=== PATIENT | male | born 1935 | race Caucasian/White ===

== ENCOUNTER 2018-07-15 13:50 | Emergency (ER) | payer MEDICARE, BC ==
--- NOTE | 2018-07-15 15:20 | EDM.PDOC ---
ED HPI GENERAL MEDICAL PROBLEM - General Chief Complaint: Respiratory Problem Stated Complaint: BREATHING ISSUES Time Seen by Provider: 07/15/18 14:42 Source of Information: Reports: Patient, Old Records, RN Notes Reviewed History Limitations: Reports: No Limitations - History of Present Illness INITIAL COMMENTS - FREE TEXT/NARRATIVE: 82-year-old gentleman presents emergency department today sent over from clinic for being hypoxic, he has a known history of COPD he has been dealing with a pneumonia for the last 6 weeks, he has had antibiotics of amoxicillin, Ceftin and levofloxacin. Recently underwent CT scan 2 days prior which demonstrates infectious change right upper lobe associated with peribronchial thickening and volume loss likely represents an indolent infectious process such as MAC. At this time he still feels short of breath worse with exertion no chest pain no nausea vomiting no sputum production Denies Pain Score (Numeric/FACES): 0 - Related Data Allergies Allergy/AdvReac Type Severity Reaction Status Date / Time codeine Allergy Hives Verified 07/15/18 14:09 erythromycin base Allergy Pain Verified 07/15/18 14:09 [Erythromycin Base] Home Meds: Home Meds Aspirin 325 mg PO DAILY 08/10/13 [History] Simvastatin [Zocor] 40 mg PO BEDTIME 08/10/13 [History] Albuterol [Proventil HFA] 2 puff INH Q4H PRN 10/07/13 [History] Cholecalciferol (Vitamin D3) [Vitamin D3] 5,000 unit PO DAILY 10/07/13 [History] Fluticasone/Salmeterol [Advair 250-50] 1 puff INH BID 10/07/13 [History] Glucosam/MSM/Chondroit/Vit D3 [Sv Glucosamine Chondroitin Tab] 1 each PO DAILY 10/07/13 [History] Ipratropium [Atrovent 0.06% Nasal [place]] 2 sprays MIRTA QID 10/07/13 [History] Ipratropium/Albuterol Sulfate [Duoneb 0.5 mg-3 mg/3 ml Soln] 3 ml IH Q4HR PRN [History] Mometasone Furoate [Nasonex] 2 sprays MIRTA DAILY 10/07/13 [History] Niacin [Niaspan] 1,000 mg PO BEDTIME 10/07/13 [History] [place] 3/DHA/Epa/Vitamin D3 [[place]-3 + Vitamin D3 Softgel] 2 cap PO DAILY [History] Vitamin B Complex [B Complex] 1 tab PO DAILY 10/07/13 [History] Levofloxacin 1 tab PO DAILY 07/15/18 [History] predniSONE 2 tab PO DAILY 07/15/18 [History] Past Medical History HEENT History: Reports: Impaired Vision Cardiovascular History: Reports: CAD, High Cholesterol, [place] Respiratory History: Reports: Asthma, COPD Musculoskeletal History: Reports: Fracture Other Musculoskeletal History: heels Hematologic History: Reports: Blood Transfusion(s) - Infectious Disease History Infectious Disease History: Reports: Chicken Pox, Measles - Past Surgical History Cardiovascular Surgical History: Reports: Coronary Artery Bypass GI Surgical History: Reports: Appendectomy, Colonoscopy, Hernia, Inguinal Social & Family History - Tobacco Use Smoking Status *Q: Former Smoker Years of Tobacco use: 40 Packs/Tins Daily: 1 Used Tobacco, but Quit: No Month/Year Tobacco Last Used: September 1989 Second Hand Smoke Exposure: No - Caffeine Use Caffeine Use: Reports: Soda, Tea - Recreational Drug Use Recreational Drug Use: No ED ROS GENERAL - Review of Systems Review Of Systems: See Below Constitutional: Denies: Fever, Chills HEENT: Reports: No Symptoms Respiratory: Reports: Shortness of Breath, Wheezing. Denies: Cough, Sputum Cardiovascular: Reports: Dyspnea on Exertion GI/Abdominal: Reports: No Symptoms : Reports: No Symptoms ED EXAM, GENERAL - Physical Exam Exam: See Below Exam Limited By: No Limitations General Appearance: Alert, WD/WN, No Apparent Distress Neck: Normal Inspection, Supple, Non-Tender, Full Range of Motion Respiratory/Chest: No Respiratory Distress, Decreased Breath Sounds, Rhonchi, Wheezing Cardiovascular: Regular Rate, Rhythm, No Murmur Course - Vital Signs Last Recorded V/S: Last Vital Signs Temp 99.0 F 07/15/18 17:22 Pulse 88 07/15/18 17:22 Resp 16 07/15/18 17:22 BP 129/72 07/15/18 17:22 Pulse Ox 89 L 07/15/18 17:22 - Orders/Labs/Meds Orders: Active Orders 24 hr Category Date Time Status RT Sputum Induction [RC] Click to Edit Care 07/15/18 16:19 Active ACID FAST SMEAR+CULTURE W/RFLX Routine Lab 07/15/18 17:11 Received CULTURE FUNGAL [MYC] Routine Lab 07/15/18 17:11 Received CULTURE RESPIRATORY + SMEAR [RM] Routine Lab 07/15/18 17:11 Received Departure - Departure Time of Disposition: 17:31 Disposition: Home, Self-Care 01 Condition: Fair 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 Chad appointment with pulmonary medicine at [facility] August 11 at 1 PM he will have pulmonary function test done at 2 PM you have an appointment with the die cutter [facility] Dr. Jackson - My Orders Last 24 Hours: My Active Orders 07/15/18 16:19 RT Sputum Induction [RC] Click to Edit 07/15/18 17:11 ACID FAST SMEAR+CULTURE W/RFLX Routine CULTURE FUNGAL [MYC] Routine CULTURE RESPIRATORY + SMEAR [RM] Routine - Assessment/Plan Last 24 Hours: My Active Orders 07/15/18 16:19 RT Sputum Induction [RC] Click to Edit 07/15/18 17:11 ACID FAST SMEAR+CULTURE W/RFLX Routine CULTURE FUNGAL [MYC] Routine CULTURE RESPIRATORY + SMEAR [RM] Routine Plan: Assessment Acuity = acute Site and laterality = right lower lobe infectious/inflammatory change concern for microbacterium avium complex Etiology = unknown etiology Manifestations = shortness of breath with hypoxia upon exertion Location of injury = Home Lab values = none Plan He remained asymptomatic with O2 saturation around 90% however he did become hypoxic with any exertion, recommend follow-up in clinic for qualification of oxygen with exertion. I called and discussed the case with pulmonary medicine Dr. Farley at 1600 recommend induced sputum for Gram stain and culture, fungus as well as AFB this was collected and sent to lab. If this is microbacterium avium complex the treatment would be 3 course antibiotic for approximately one year. I have set this gentleman up for consultation with pulmonary medicine August 11 at 1 PM in [facility] he will have PFTs done at 2: 00 he has an appointment with Dr. Jackson. I talked with him about hospital admission he declined at this time would prefer to do this as an outpatient This note was dictated using [employer] voice recognition software please call with any questions on syntax or grammar.
== END 2018-07-15 17:59 | disposition home or self-care (01) ==
LOC: JP.ED 13:50
DX: A31.0 Pulmonary mycobacterial infection (principal); J44.9 Chronic obstructive pulmonary disease, unspecified; Z88.5 Allergy status to narcotic agent; Z88.1 Allergy status to other antibiotic agents; Z79.82 Long term (current) use of aspirin; Z87.891 Personal history of nicotine dependence
CPT/HCPCS: 87015; 87070; 87102; 87116; 87205; 87206; 99284-25

== ENCOUNTER 2020-01-01 08:56 | Inpatient (IN) | payer MEDICARE, BC, OTHER ==
[2020-01-01] MEDS ORDERED: Albuterol/Ipratropium 3.0-0.5 MG/3 ML Neb Soln ONE (09:12)
[2020-01-01] MEDS ORDERED: methylPREDNISolone Sodium Succinate 125 MG/2 ML SDV IVPUSH ONE (09:14)
[2020-01-01] MEDS ORDERED: Albuterol/Ipratropium 3.0-0.5 MG/3 ML Neb Soln NEB ONE (09:14)
--- NOTE | 2020-01-01 09:38 | EDM.PDOC ---
ED HPI GENERAL MEDICAL PROBLEM - General Chief Complaint: Chest Pain Stated Complaint: DIFFICULT TIME BREATHING Time Seen by Provider: 01/01/20 09:33 Source of Information: Reports: Patient History Limitations: Reports: No Limitations - History of Present Illness INITIAL COMMENTS - FREE TEXT/NARRATIVE: pt has had 2-3 days of sob and feeling that he was very tight in his chest. He has a long history of copd. Today he developed increased chest pain starting on the rt side and moving over. to the left. Onset: Today, Other ( the chest pain and sob got worse. ) Duration: Hour(s): Location: Reports: Chest, Generalized Associated Symptoms: Reports: Chest Pain, Cough, Shortness of Breath, Weakness Right Chest Pain Score (Numeric/FACES): 7 - Related Data Allergies Allergy/AdvReac Type Severity Reaction Status Date / Time codeine Allergy Hives Verified 07/15/18 14:09 erythromycin base Allergy Pain Verified 07/15/18 14:09 [Erythromycin Base] Home Meds: Home Meds Aspirin 325 mg PO DAILY 08/10/13 [History] Simvastatin [Zocor] 40 mg PO BEDTIME 08/10/13 [History] Albuterol [Proventil HFA] 2 puff INH Q4H PRN 10/07/13 [History] Cholecalciferol (Vitamin D3) [Vitamin D3] 5,000 unit PO DAILY 10/07/13 [History] Glucosam/MSM/Chondroit/Vit D3 [Sv Glucosamine Chondroitin Tab] 1 each PO DAILY 10/07/13 [History] Ipratropium [Atrovent 0.06% Nasal [place]] 2 sprays MIRTA QID 10/07/13 [History] Ipratropium/Albuterol Sulfate [Duoneb 0.5 mg-3 mg/3 ml Soln] 3 ml IH Q4HR PRN 10/07/13 [History] Niacin [Niaspan] 1,000 mg PO BEDTIME 10/07/13 [History] [place] 3/DHA/Epa/Vitamin D3 [[place]-3 + Vitamin D3 Softgel] 2 cap PO DAILY 10/07/13 [History] Vitamin B Complex [B Complex] 1 tab PO DAILY 10/07/13 [History] Azithromycin 500 mg PO ASDIRECTED 01/01/20 [History] Fluticasone Propionate [Flonase] 16 gm NS DAILY 01/01/20 [History] predniSONE [Prednisone] 5 mg PO DAILY 01/01/20 [History] Past Medical History HEENT History: Reports: Impaired Vision Cardiovascular History: Reports: CAD, High Cholesterol, [place] Respiratory History: Reports: Asthma, COPD Musculoskeletal History: Reports: Fracture Other Musculoskeletal History: heels Hematologic History: Reports: Blood Transfusion(s) - Infectious Disease History Infectious Disease History: Reports: Chicken Pox, Measles, Mumps - Past Surgical History Cardiovascular Surgical History: Reports: Coronary Artery Bypass GI Surgical History: Reports: Appendectomy, Colonoscopy, Hernia, Inguinal Social & Family History - Tobacco Use Smoking Status *Q: Former Smoker Used Tobacco, but Quit: Yes Month/Year Tobacco Last Used: many years ago - Caffeine Use Caffeine Use: Reports: Coffee - Recreational Drug Use Recreational Drug Use: No ED ROS GENERAL - Review of Systems Review Of Systems: See Below Constitutional: Reports: Weakness HEENT: Reports: No Symptoms Respiratory: Reports: Shortness of Breath, Wheezing, Cough Cardiovascular: Reports: No Symptoms Endocrine: Reports: No Symptoms GI/Abdominal: Reports: No Symptoms : Reports: No Symptoms Musculoskeletal: Reports: No Symptoms Skin: Reports: No Symptoms ED EXAM, GENERAL - Physical Exam Exam: See Below Free Text/Narrative:: pt arrived with a history of being sob for several days but the last 2 have been much worse. He has not had a fever. Exam Limited By: No Limitations General Appearance: Alert, Anxious, Moderate Distress Ears: Normal TMs Nose: Normal Inspection Throat/Mouth: Normal Inspection Head: Atraumatic Neck: Normal Inspection Respiratory/Chest: Decreased Breath Sounds, Crackles, Wheezing Cardiovascular: Regular Rate, Rhythm GI/Abdominal: Soft, Non-Tender (Male) Exam: Deferred Rectal (Males) Exam: Deferred Back Exam: Normal Inspection Extremities: Normal Inspection Neurological: Alert, Oriented, Normal Cognition Course - Vital Signs Last Recorded V/S: Last Vital Signs Temp 36.8 C 01/02/20 02:30 Pulse 70 01/02/20 07:00 Resp 16 01/02/20 02:30 BP 101/54 L 01/02/20 02:30 Pulse Ox 95 01/02/20 02:30 - Orders/Labs/Meds Orders: Active Orders 24 hr Category Date Time Status RT Aerosol Therapy [RC] ASDIRECTED Care 01/01/20 09:14 Active Medication Orders Acetaminophen (Tylenol) 650 mg PO Q6H PRN PRN Reason: Pain Albuterol/Ipratropium (Duoneb 3.0-0.5 Mg/3 Ml) 3 ml INH QIDRT [facility] Last Admin: 01/02/20 07:00 Dose: 3 ml Documented by: Admin: 01/01/20 20:16 Dose: 3 ml Documented by: Admin: 01/01/20 16:01 Dose: 3 ml Documented by: GUDELIA Albuterol/Ipratropium (Duoneb 3.0-0.5 Mg/3 Ml) 3 ml INH ASDIRECTED PRN PRN Reason: BREATHING Aspirin (Ecotrin) 325 mg PO 1700 [facility] Last Admin: 01/01/20 20:16 Dose: 325 mg Documented by: KYARA Hydromorphone HCl (Dilaudid Product Manager [employer] 15 Mg In Ns 30 Ml) 0 mg IV ASDIRECTED PRN; Protocol PRN Reason: DIRECT ENTRY MIDWIFE PAIN CONTROL Last Admin: 01/01/20 15:54 Dose: 15 mg Documented by: RHETT Dextrose/Lactated Ringer's (Dextrose 5%-Lactated Ringers) 1,000 mls @ 75 mls/hr IV ASDIRECTED [facility] Last Admin: 01/02/20 02:27 Dose: 75 mls/hr Documented by: KYARA Cefazolin Sodium/Dextrose 1 gm (/ Premix) 50 mls @ 100 mls/hr IV Q8H [facility] Last Admin: 01/01/20 23:28 Dose: 100 mls/hr Documented by: Infusion: 01/01/20 16:48 Dose: 100 mls/hr Documented by: Admin: 01/01/20 16:18 Dose: 100 mls/hr Documented by: GUDELIA Naloxone HCl (Narcan) 0.1 mg IV ASDIRECTED PRN PRN Reason: decreased respiratory rate Niacin (Niacin) 1,000 mg PO 1700 [facility] Simvastatin (Zocor) 40 mg PO BEDTIME [facility] Last Admin: 01/01/20 20:15 Dose: 40 mg Documented by: KYARA Labs: Laboratory Tests 01/01/20 01/01/20 01/01/20 Range/Units 09:13 09:13 09:24 WBC 11.3 H (4.5-11.0) K/uL RBC 4.38 (4.30-5.90) M/uL Hgb 13.1 (12.0-15.0) g/dL Hct 40.8 (40.0-54.0) % MCV 93 (80-98) fL MCH 30 (27-31) pg MCHC 32 (32-36) % Plt Count 267 (150-400) K/uL Neut % (Auto) 76 H (36-66) % Lymph % (Auto) 14 L (24-44) % Dillon % (Auto) 9 H (2-6) % Eos % (Auto) 1 L (2-4) % Baso % (Auto) 0 (0-1) % Puncture Site Rt brachial ABG pH 7.455 H (7.350-7.450) ABG pCO2 43.9 H (35.0-42.0) mmHg ABG pO2 71.6 L (75.0-100.0) mmHg ABG HCO3 30.4 H (22.0-26.0) mmol/L ABG Total CO2 27.0 (23.0-27.0) mmol/L ABG O2 Saturation 94.7 L (95.0-98.0) % ABG O2 Content 16.5 (15.0-23.0) %vol ABG Base Excess 6.2 mm/L ABG Hemoglobin 12.8 L (13.5-18.0) g/dL ABG Oxyhemoglobin 91.4 % ABG Carboxyhemoglobin 2.8 H (0.0-1.6) % ABG Methemoglobin 0.7 % Seb Test Not performed O2 Delivery Device Nasal cannula Oxygen Flow Rate 3.0 L Sodium 142 (140-148) mmol/L Potassium 4.3 (3.6-5.2) mmol/L Chloride 103 (100-108) mmol/L Carbon Dioxide 31 (21-32) mmol/L Anion Gap 8.2 (5.0-14.0) mmol/L BUN 31 H (7-18) mg/dL Creatinine 1.1 (0.8-1.3) mg/dL Est Cr Clr Drug Dosing 42.19 mL/min Estimated GFR (MDRD) > 60 (>60) Glucose 122 H (74-106) mg/dL Calcium 9.8 (8.5-10.1) mg/dL Total Bilirubin 0.8 (0.2-1.0) mg/dL AST 16 (15-37) U/L ALT 23 (12-78) U/L Alkaline Phosphatase 47 (46-116) U/L Troponin I (0.000-0.056) ng/mL NT-Pro-B Natriuret Pep (5-450) pg/mL Total Protein 7.4 (6.4-8.2) g/dL Albumin 4.0 (3.4-5.0) g/dL Globulin 3.4 (2.3-3.5) g/dL Albumin/Globulin Ratio 1.2 (1.2-2.2) Urine Color (YELLOW) Urine Appearance (CLEAR) Urine pH (5.0-8.0) Ur Specific Cyril (1.008-1.030) Urine Protein (NEGATIVE) mg/dL Urine Glucose (UA) (NEGATIVE) mg/dL Urine Ketones (NEGATIVE) mg/dL Urine Occult Blood (NEGATIVE) Urine Nitrite (NEGATIVE) Urine Bilirubin (NEGATIVE) Urine Urobilinogen (0.2-1.0) EU/dL Ur Leukocyte Esterase (NEGATIVE) Urine RBC (0-5) Urine WBC (0-5) Ur Epithelial Cells Amorphous Sediment Urine Bacteria Urine Mucus SARS-CoV-2 RNA (MAIKOL) (NEGATIVE) 01/01/20 01/01/20 01/01/20 Range/Units 09:24 09:39 10:00 WBC (4.5-11.0) K/uL RBC (4.30-5.90) M/uL Hgb (12.0-15.0) g/dL Hct (40.0-54.0) % MCV (80-98) fL MCH (27-31) pg MCHC (32-36) % Plt Count (150-400) K/uL Neut % (Auto) (36-66) % Lymph % (Auto) (24-44) % Dillon % (Auto) (2-6) % Eos % (Auto) (2-4) % Baso % (Auto) (0-1) % Puncture Site ABG pH (7.350-7.450) ABG pCO2 (35.0-42.0) mmHg ABG pO2 (75.0-100.0) mmHg ABG HCO3 (22.0-26.0) mmol/L ABG Total CO2 (23.0-27.0) mmol/L ABG O2 Saturation (95.0-98.0) % ABG O2 Content (15.0-23.0) %vol ABG Base Excess mm/L ABG Hemoglobin (13.5-18.0) g/dL ABG Oxyhemoglobin % ABG Carboxyhemoglobin (0.0-1.6) % ABG Methemoglobin % Seb Test O2 Delivery Device Oxygen Flow Rate L Sodium (140-148) mmol/L Potassium (3.6-5.2) mmol/L Chloride (100-108) mmol/L Carbon Dioxide (21-32) mmol/L Anion Gap (5.0-14.0) mmol/L BUN (7-18) mg/dL Creatinine (0.8-1.3) mg/dL Est Cr Clr Drug Dosing mL/min Estimated GFR (MDRD) (>60) Glucose (74-106) mg/dL Calcium (8.5-10.1) mg/dL Total Bilirubin (0.2-1.0) mg/dL AST (15-37) U/L ALT (12-78) U/L Alkaline Phosphatase (46-116) U/L Troponin I < 0.017 (0.000-0.056) ng/mL NT-Pro-B Natriuret Pep 223 (5-450) pg/mL Total Protein (6.4-8.2) g/dL Albumin (3.4-5.0) g/dL Globulin (2.3-3.5) g/dL Albumin/Globulin Ratio (1.2-2.2) Urine Color Yellow (YELLOW) Urine Appearance Clear (CLEAR) Urine pH 7.5 (5.0-8.0) Ur Specific C[place]il 1.025 (1.008-1.030) Urine Protein Negative (NEGATIVE) mg/dL Urine Glucose (UA) Negative (NEGATIVE) mg/dL Urine Ketones Negative (NEGATIVE) mg/dL Urine Occult Blood Negative (NEGATIVE) Urine Nitrite Negative (NEGATIVE) Urine Bilirubin Negative (NEGATIVE) Urine Urobilinogen 0.2 (0.2-1.0) EU/dL Ur Leukocyte Esterase Negative (NEGATIVE) Urine RBC 0-5 (0-5) Urine WBC 0-5 (0-5) Ur Epithelial Cells Rare Amorphous Sediment Moderate Urine Bacteria Few Urine Mucus Not seen SARS-CoV-2 RNA (MAIKOL) (NEGATIVE) 01/01/20 Range/Units 10:09 WBC (4.5-11.0) K/uL RBC (4.30-5.90) M/uL Hgb (12.0-15.0) g/dL Hct (40.0-54.0) % MCV (80-98) fL MCH (27-31) pg MCHC (32-36) % Plt Count (150-400) K/uL Neut % (Auto) (36-66) % Lymph % (Auto) (24-44) % Dillon % (Auto) (2-6) % Eos % (Auto) (2-4) % Baso % (Auto) (0-1) % Puncture Site ABG pH (7.350-7.450) ABG pCO2 (35.0-42.0) mmHg ABG pO2 (75.0-100.0) mmHg ABG HCO3 (22.0-26.0) mmol/L ABG Total CO2 (23.0-27.0) mmol/L ABG O2 Saturation (95.0-98.0) % ABG O2 Content (15.0-23.0) %vol ABG Base Excess mm/L ABG Hemoglobin (13.5-18.0) g/dL ABG Oxyhemoglobin % ABG Carboxyhemoglobin (0.0-1.6) % ABG Methemoglobin % Seb Test O2 Delivery Device Oxygen Flow Rate L Sodium (140-148) mmol/L Potassium (3.6-5.2) mmol/L Chloride (100-108) mmol/L Carbon Dioxide (21-32) mmol/L Anion Gap (5.0-14.0) mmol/L BUN (7-18) mg/dL Creatinine (0.8-1.3) mg/dL Est Cr Clr Drug Dosing mL/min Estimated GFR (MDRD) (>60) Glucose (74-106) mg/dL Calcium (8.5-10.1) mg/dL Total Bilirubin (0.2-1.0) mg/dL AST (15-37) U/L ALT (12-78) U/L Alkaline Phosphatase (46-116) U/L Troponin I (0.000-0.056) ng/mL NT-Pro-B Natriuret Pep (5-450) pg/mL Total Protein (6.4-8.2) g/dL Albumin (3.4-5.0) g/dL Globulin (2.3-3.5) g/dL Albumin/Globulin Ratio (1.2-2.2) Urine Color (YELLOW) Urine Appearance (CLEAR) Urine pH (5.0-8.0) Ur Specific [place] (1.008-1.030) Urine Protein (NEGATIVE) mg/dL Urine Glucose (UA) (NEGATIVE) mg/dL Urine Ketones (NEGATIVE) mg/dL Urine Occult Blood (NEGATIVE) Urine Nitrite (NEGATIVE) Urine Bilirubin (NEGATIVE) Urine Urobilinogen (0.2-1.0) EU/dL Ur Leukocyte Esterase (NEGATIVE) Urine RBC (0-5) Urine WBC (0-5) Ur Epithelial Cells Amorphous Sediment Urine Bacteria Urine Mucus SARS-CoV-2 RNA (MAIKOL) Negative (NEGATIVE) Meds: Medications Generic Name Dose Route Start Last Admin Trade Name Freq PRN Reason Stop Dose Admin Acetaminophen 650 mg 01/01/20 14:34 Tylenol PO Q6H PRN Pain Albuterol/Ipratropium 3 ml 01/01/20 15:00 01/02/20 07:00 Duoneb 3.0-0.5 Mg/3 Ml INH 3 ml QIDRT [facility] Administration Albuterol/Ipratropium 3 ml 01/01/20 15:00 Duoneb 3.0-0.5 Mg/3 Ml INH ASDIRECTED PRN BREATHING Aspirin 325 mg 01/01/20 19:44 01/01/20 20:16 Ecotrin PO 325 mg 1700 [facility] Administration Hydromorphone HCl 0 mg 01/01/20 15:38 01/01/20 15:54 Dilaudid Product Manager [employer] 15 Mg In Ns 30 Ml IV 15 mg ASDIRECTED PRN Administration DIRECT ENTRY MIDWIFE PAIN CONTROL Protocol Dextrose/Lactated Ringer's 1,000 mls @ 75 mls/hr 01/01/20 14:45 01/02/20 02:27 Dextrose 5%-Lactated Ringers IV 75 mls/hr ASDIRECTED [facility]I Administration Cefazolin Sodium/Dextrose 1 gm 50 mls @ 100 mls/hr 01/01/20 16:00 01/01/20 23:28 / Premix IV 100 mls/hr Q8H [facility] Administration Naloxone HCl 0.1 mg 01/01/20 16:00 Narcan IV ASDIRECTED PRN decreased respiratory rate Niacin 1,000 mg 01/02/20 17:00 Niacin PO 1700 [facility] Simvastatin 40 mg 01/01/20 21:00 01/01/20 20:15 Zocor PO 40 mg BEDTIME [facility] Administration Discontinued Medications Generic Name Dose Route Start Last Admin Trade Name Freq PRN Reason Stop Dose Admin Albuterol 2.5 mg 01/01/20 10:25 01/01/20 10:32 Proventil Neb Soln NEB 01/01/20 10:26 2.5 mg ONETIME ONE Administration Albuterol/Ipratropium Confirm 01/01/20 09:12 01/01/20 09:22 Duoneb 3.0-0.5 Mg/3 Ml Administered 01/01/20 09:13 Not Given Dose 3 ml .ROUTE .STK-MED ONE Albuterol/Ipratropium 3 ml 01/01/20 09:14 01/01/20 09:22 Duoneb 3.0-0.5 Mg/3 Ml NEB 01/01/20 09:15 3 ml ONETIME ONE Administration Aspirin 325 mg 01/02/20 09:00 Ecotrin PO DAILY [facility] Aspirin 325 mg 01/02/20 17:00 Ecotrin PO 1700 [facility] Lidocaine/Epinephrine Confirm 01/01/20 11:38 01/01/20 15:45 Xylocaine 1% With Epinephrine 1:100,000 Administered 01/01/20 11:39 Not Given Dose 50 ml .ROUTE .STK-MED ONE Lidocaine/Epinephrine 3 ml 01/01/20 11:40 01/01/20 12:14 Xylocaine 1% With Epinephrine 1:100,000 INJECT 01/01/20 11:41 3 ml ONETIME ONE Administration Magnesium Citrate 296 ml 01/01/20 11:42 01/01/20 12:11 Citrate Of Magnesia PO 01/01/20 11:43 296 ml ONETIME ONE Administration Methylprednisolone Sodium Succinate 125 mg 01/01/20 09:14 01/01/20 09:22 Solu-Medrol IVPUSH 01/01/20 09:15 125 mg ONETIME ONE Administration Midazolam HCl Confirm 01/01/20 11:36 01/01/20 15:45 Versed 1 Mg/Ml Administered 01/01/20 11:37 Not Given Dose 5 mg .ROUTE .STK-MED ONE Midazolam HCl 5 mg 01/01/20 12:02 01/01/20 11:45 Versed 1 Mg/Ml IVPUSH 01/01/20 12:03 5 mg ONETIME ONE Administration Niacin 1,000 mg 01/01/20 19:43 01/01/20 20:15 Niacin PO 01/01/20 19:44 1,000 mg ONETIME ONE Administration - Re-Assessments/Exams Free Text/Narrative Re-Assessment/Exam: 01/01/20 10:26 chest xray showed no infiltrate. His wbc was mildly elevated. He had o2 sats in the 70s on arrival. He was very tight and wheezy. His chest xray did reveal a possible pneumothorax in the rt chest. Will obtain a cat scan of the chest. 01/01/20 10:45 Departure - Departure Time of Disposition: 05:00 Disposition: Admitted As Inpatient 68 Condition: Fair Clinical Impression: Pneumothorax, right, COPD (chronic obstructive pulmonary disease), Low O2 saturation - Discharge Information Sepsis Event Note (ED) - Evaluation Sepsis Screening Result: No Definite Risk - My Orders Last 24 Hours: My Active Orders 01/01/20 09:14 RT Aerosol Therapy [RC] ASDIRECTED - Assessment/Plan Last 24 Hours: My Active Orders 01/01/20 09:14 RT Aerosol Therapy [RC] ASDIRECTED
[2020-01-01] MEDS ORDERED: Albuterol 0.083% 2.5 MG/3 ML Neb Soln NEB ONE (10:25)
--- NOTE | 2020-01-01 11:30 | CRLCR ---
HISTORY: Shortness of breath. TECHNIQUE: Portable frontal view the chest. COMPARISON: None. FINDINGS: Large right pneumothorax. No mediastinal shift. Right lower lobe atelectasis. Left lung is hyperinflated. No significant pleural effusion. Pulmonary vasculature is within normal limits. Cardiomediastinal silhouette size is normal. Sternal wires. IMPRESSION: Large right pneumothorax. Dictated by Moses Dale MD @ Jan 01 2020 11:27AM Signed by Dr. Moses Dale @ Jan 01 2020 11:29AM
[2020-01-01] MEDS ORDERED: Midazolam 1 MG/ML 5 ML SDV ONE (11:36)
[2020-01-01] MEDS ORDERED: Lidocaine 1% with EPINEPHrine 1:100,000 50 ML MDV ONE (11:38)
[2020-01-01] MEDS ORDERED: Lidocaine 1% with EPINEPHrine 1:100,000 50 ML MDV INJECT ONE (11:40)
[2020-01-01] MEDS ORDERED: Magnesium Citrate Solution 296 ML Bottle PO ONE (11:42)
[2020-01-01] MEDS ORDERED: Midazolam 1 MG/ML 5 ML SDV IVPUSH ONE (12:02)
--- NOTE | 2020-01-01 12:39 | CRLCT ---
INDICATION: Right pneumothorax. TECHNIQUE: CT chest without contrast. Multiplanar/MIP reformats were created. COMPARISON: Chest x-ray 01/01/2020 FINDINGS: There is a large right pneumothorax. The right middle lobe and lower lobe are completely collapsed. The right upper lobe has moderate centrilobular emphysematous changes. Small amount of atelectasis is present dependently. There is a trace right pleural effusion. Emphysematous changes are also present within the left colon. The left lung is otherwise clear without focal consolidation, pleural effusion or pneumothorax. There is atherosclerotic calcification of the aortic arch. The heart is normal in size. There are postsurgical changes of median sternotomy. There is no suspicious mediastinal or axillary adenopathy. A probable cyst is partially visualized within the left kidney. The upper abdomen is otherwise unremarkable. The bones are unremarkable for patient age. IMPRESSION: 1. Large right pneumothorax with a trace right pleural effusion. 2. Complete atelectasis of the right middle and lower lobes. Recommend follow-up CT after chest tube placement and resolution of the pneumothorax to better evaluate the underlying lung. 3. Moderate centrilobular emphysema. Findings were discussed with Dr. Fisher on 01/01/2020 and 12:25 p.m.. Dictated by MD @ 01/01/2020 12:38:17 PM Please note that all CT scans at this facility use dose modulation, iterative reconstruction, and/or weight-based dosing when appropriate to reduce radiation dose to as low as reasonably achievable. Dictated by: Alka Frazier MD @ 01/01/2020 12:38:40 (Electronically Signed)
--- NOTE | 2020-01-01 12:50 | CRLCR ---
INDICATION: Right-sided pneumothorax. TECHNIQUE: Chest 1 view. COMPARISON: CT scanning of the chest performed. Less than 1 hour prior FINDINGS: There has been interval placement of a subtle of right-sided chest tube (Bryan catheter) which appears in good position in the medial right upper thorax. There has been near complete re-expansion of the right-sided pneumothorax. Mild compressive atelectasis persists at the right lung base. Pulmonary emphysematous changes are present with no other region of pulmonary alveolar consolidation noted. There is no shift of midline structures. The heart size and within the normal range. Changes of previous midline sternotomy and coronary artery bypass grafting are again noted. IMPRESSION: New mildly radiopaque right-sided chest tube (Bryan catheter) appears appropriately positioned with near-complete reexpansion of the right lung/resolution of the right-sided pneumothorax. Dictated by Felipe Ornelas MD @ Jan 01 2020 12:43PM Signed by Dr. Felipe Ornelas @ Jan 01 2020 12:49PM
--- NOTE | 2020-01-01 13:53 | PCM.CONS ---
H&P History of Present Illness - General Date of Service: 01/01/20 Source of Information: Patient, Provider, RN Notes Reviewed History Limitations: Reports: No Limitations - History of Present Illness Initial Comments - Free Text/Narative: Mr. Preston is an 84-year-old gentleman who was admitted through the emergency department with increased shortness of breath secondary to underlying COPD and right pneumothorax. He has had a longstanding history of COPD but has not required supplemental oxygen. Yesterday he noted abrupt onset of right pleuritic pain and increased shortness of breath. He denies change in his chronic cough and has had no fevers or chills. He came into the emergency department today because of his pain and shortness of breath. Chest x-ray and CT scan document a right pneumothorax. He has been seen and evaluated by Dr. Matias with right chest tube placement. I am asked to see him at this time by Dr. Matias for assistance in medical management during his hospitalization. - Related Data Allergies/Adverse Reactions: Allergies Allergy/AdvReac Type Severity Reaction Status Date / Time codeine Allergy Hives Verified 07/15/18 14:09 erythromycin base Allergy Pain Verified 07/15/18 14:09 [Erythromycin Base] Home Medications: Home Meds Aspirin 325 mg PO DAILY 08/10/13 [History] Simvastatin [Zocor] 40 mg PO BEDTIME 08/10/13 [History] Albuterol [Proventil HFA] 2 puff INH Q4H PRN 10/07/13 [History] Cholecalciferol (Vitamin D3) [Vitamin D3] 5,000 unit PO DAILY 10/07/13 [History] Fluticasone/Salmeterol [Advair 250-50] 1 puff INH BID 10/07/13 [History] Glucosam/MSM/Chondroit/Vit D3 [Sv Glucosamine Chondroitin Tab] 1 each PO DAILY 10/07/13 [History] Ipratropium [Atrovent 0.06% Nasal [place]] 2 sprays MIRTA QID 10/07/13 [History] Ipratropium/Albuterol Sulfate [Duoneb 0.5 mg-3 mg/3 ml Soln] 3 ml IH Q4HR PRN 10/07/13 [History] Mometasone Furoate [Nasonex] 2 sprays MIRTA DAILY 10/07/13 [History] Niacin [Niaspan] 1,000 mg PO BEDTIME 10/07/13 [History] [place] 3/DHA/Epa/Vitamin D3 [[place]-3 + Vitamin D3 Softgel] 2 cap PO DAILY 10/07/13 [History] Vitamin B Complex [B Complex] 1 tab PO DAILY 10/07/13 [History] Levofloxacin 1 tab PO DAILY 07/15/18 [History] Past Medical History HEENT History: Reports: Impaired Vision Cardiovascular History: Reports: CAD, High Cholesterol, [place] Respiratory History: Reports: Asthma, COPD Musculoskeletal History: Reports: Fracture Other Musculoskeletal History: heels Hematologic History: Reports: Blood Transfusion(s) - Infectious Disease History Infectious Disease History: Reports: Chicken Pox, Measles, Mumps - Past Surgical History Cardiovascular Surgical History: Reports: Coronary Artery Bypass GI Surgical History: Reports: Appendectomy, Colonoscopy, Hernia, Inguinal Social & Family History - Tobacco Use Smoking Status *Q: Former Smoker Used Tobacco, but Quit: Yes Month/Year Tobacco Last Used: many years ago - Caffeine Use Caffeine Use: Reports: Coffee - Recreational Drug Use Recreational Drug Use: No H&P Review of Systems - Review of Systems: Review Of Systems: See Below General: Reports: No Symptoms HEENT: Reports: No Symptoms Pulmonary: Reports: Shortness of Breath, Cough (Chronic). Denies: Wheezing, Pleuritic Chest Pain, Sputum, Hemoptysis Cardiovascular: Reports: Dyspnea on Exertion. Denies: Chest Pain, Palpitations, Orthopnea, PND, Edema, Lightheadedness Gastrointestinal: Reports: No Symptoms Genitourinary: Reports: No Symptoms Musculoskeletal: Reports: No Symptoms Exam - Exam Exam: See Below - Vital Signs Vital Signs: Last Vital Signs Temp 99.4 F 01/01/20 09:27 Pulse 89 01/01/20 10:39 Resp 11 L 01/01/20 10:39 BP 115/66 01/01/20 10:39 Pulse Ox 98 01/01/20 10:39 Weight: 127 lb - Exam Quality Assessment: Supplemental Oxygen, DVT Prophylaxis General: Alert, Oriented, Cooperative, Mild Distress Neck: Supple, Trachea Midline, +2 Carotid Pulse wo Bruit Lungs: Normal Respiratory Effort, Decreased Breath Sounds. No: Crackles, Rales, Rhonchi, Rub, Wheezing Cardiovascular: Regular Rate, Regular Rhythm, Normal S1, Normal S2. No: Systolic Murmur, Diastolic Murmur GI/Abdominal Exam: Soft, Non-Tender, No Organomegaly, No Distention Back Exam: Normal Inspection, Full Range of Motion Extremities: Non-Tender, No Pedal Edema - Patient Data Lab Results Last 24 hrs: Laboratory Results - last 24 hr 01/01/20 01/01/20 01/01/20 Range/Units 09:13 09:13 09:24 WBC 11.3 H (4.5-11.0) K/uL RBC 4.38 (4.30-5.90) M/uL Hgb 13.1 (12.0-15.0) g/dL Hct 40.8 (40.0-54.0) % MCV 93 (80-98) fL MCH 30 (27-31) pg MCHC 32 (32-36) % Plt Count 267 (150-400) K/uL Neut % (Auto) 76 H (36-66) % Lymph % (Auto) 14 L (24-44) % [place] % (Auto) 9 H (2-6) % Eos % (Auto) 1 L (2-4) % Baso % (Auto) 0 (0-1) % Puncture Site Rt brachial ABG pH 7.455 H (7.350-7.450) ABG pCO2 43.9 H (35.0-42.0) mmHg ABG pO2 71.6 L (75.0-100.0) mmHg ABG HCO3 30.4 H (22.0-26.0) mmol/L ABG Total CO2 27.0 (23.0-27.0) mmol/L ABG O2 Saturation 94.7 L (95.0-98.0) % ABG O2 Content 16.5 (15.0-23.0) %vol ABG Base Excess 6.2 mm/L ABG Hemoglobin 12.8 L (13.5-18.0) g/dL ABG Oxyhemoglobin 91.4 % ABG Carboxyhemoglobin 2.8 H (0.0-1.6) % ABG Methemoglobin 0.7 % Seb Test Not performed O2 Delivery Device Nasal cannula Oxygen Flow Rate 3.0 L Sodium 142 (140-148) mmol/L Potassium 4.3 (3.6-5.2) mmol/L Chloride 103 (100-108) mmol/L Carbon Dioxide 31 (21-32) mmol/L Anion Gap 8.2 (5.0-14.0) mmol/L BUN 31 H (7-18) mg/dL Creatinine 1.1 (0.8-1.3) mg/dL Est Cr Clr Drug Dosing 42.19 mL/min Estimated GFR (MDRD) > 60 (>60) Glucose 122 H (74-106) mg/dL Calcium 9.8 (8.5-10.1) mg/dL Total Bilirubin 0.8 (0.2-1.0) mg/dL AST 16 (15-37) U/L ALT 23 (12-78) U/L Alkaline Phosphatase 47 (46-116) U/L Troponin I (0.000-0.056) ng/mL NT-Pro-B Natriuret Pep (5-450) pg/mL Total Protein 7.4 (6.4-8.2) g/dL Albumin 4.0 (3.4-5.0) g/dL Globulin 3.4 (2.3-3.5) g/dL Albumin/Globulin Ratio 1.2 (1.2-2.2) Urine Color (YELLOW) Urine Appearance (CLEAR) Urine pH (5.0-8.0) Ur Specific [place] (1.008-1.030) Urine Protein (NEGATIVE) mg/dL Urine Glucose (UA) (NEGATIVE) mg/dL Urine Ketones (NEGATIVE) mg/dL Urine Occult Blood (NEGATIVE) Urine Nitrite (NEGATIVE) Urine Bilirubin (NEGATIVE) Urine Urobilinogen (0.2-1.0) EU/dL Ur Leukocyte Esterase (NEGATIVE) Urine RBC (0-5) Urine WBC (0-5) Ur Epithelial Cells Amorphous Sediment Urine Bacteria Urine Mucus SARS-CoV-2 RNA (MAIKOL) (NEGATIVE) 01/01/20 01/01/20 01/01/20 Range/Units 09:24 09:39 10:00 WBC (4.5-11.0) K/uL RBC (4.30-5.90) M/uL Hgb (12.0-15.0) g/dL Hct (40.0-54.0) % MCV (80-98) fL MCH (27-31) pg MCHC (32-36) % Plt Count (150-400) K/uL Neut % (Auto) (36-66) % Lymph % (Auto) (24-44) % [place] % (Auto) (2-6) % Eos % (Auto) (2-4) % Baso % (Auto) (0-1) % Puncture Site ABG pH (7.350-7.450) ABG pCO2 (35.0-42.0) mmHg ABG pO2 (75.0-100.0) mmHg ABG HCO3 (22.0-26.0) mmol/L ABG Total CO2 (23.0-27.0) mmol/L ABG O2 Saturation (95.0-98.0) % ABG O2 Content (15.0-23.0) %vol ABG Base Excess mm/L ABG Hemoglobin (13.5-18.0) g/dL ABG Oxyhemoglobin % ABG Carboxyhemoglobin (0.0-1.6) % ABG Methemoglobin % Seb Test O2 Delivery Device Oxygen Flow Rate L Sodium (140-148) mmol/L Potassium (3.6-5.2) mmol/L Chloride (100-108) mmol/L Carbon Dioxide (21-32) mmol/L Anion Gap (5.0-14.0) mmol/L BUN (7-18) mg/dL Creatinine (0.8-1.3) mg/dL Est Cr Clr Drug Dosing mL/min Estimated GFR (MDRD) (>60) Glucose (74-106) mg/dL Calcium (8.5-10.1) mg/dL Total Bilirubin (0.2-1.0) mg/dL AST (15-37) U/L ALT (12-78) U/L Alkaline Phosphatase (46-116) U/L Troponin I < 0.017 (0.000-0.056) ng/mL NT-Pro-B Natriuret Pep 223 (5-450) pg/mL Total Protein (6.4-8.2) g/dL Albumin (3.4-5.0) g/dL Globulin (2.3-3.5) g/dL Albumin/Globulin Ratio (1.2-2.2) Urine Color Yellow (YELLOW) Urine Appearance Clear (CLEAR) Urine pH 7.5 (5.0-8.0) Ur Specific [place] 1.025 (1.008-1.030) Urine Protein Negative (NEGATIVE) mg/dL Urine Glucose (UA) Negative (NEGATIVE) mg/dL Urine Ketones Negative (NEGATIVE) mg/dL Urine Occult Blood Negative (NEGATIVE) Urine Nitrite Negative (NEGATIVE) Urine Bilirubin Negative (NEGATIVE) Urine Urobilinogen 0.2 (0.2-1.0) EU/dL Ur Leukocyte Esterase Negative (NEGATIVE) Urine RBC 0-5 (0-5) Urine WBC 0-5 (0-5) Ur Epithelial Cells Rare Amorphous Sediment Moderate Urine Bacteria Few Urine Mucus Not seen SARS-CoV-2 RNA (MAIKOL) (NEGATIVE) 01/01/20 Range/Units 10:09 WBC (4.5-11.0) K/uL RBC (4.30-5.90) M/uL Hgb (12.0-15.0) g/dL Hct (40.0-54.0) % MCV (80-98) fL MCH (27-31) pg MCHC (32-36) % Plt Count (150-400) K/uL Neut % (Auto) (36-66) % Lymph % (Auto) (24-44) % [place] % (Auto) (2-6) % Eos % (Auto) (2-4) % Baso % (Auto) (0-1) % Puncture Site ABG pH (7.350-7.450) ABG pCO2 (35.0-42.0) mmHg ABG pO2 (75.0-100.0) mmHg ABG HCO3 (22.0-26.0) mmol/L ABG Total CO2 (23.0-27.0) mmol/L ABG O2 Saturation (95.0-98.0) % ABG O2 Content (15.0-23.0) %vol ABG Base Excess mm/L ABG Hemoglobin (13.5-18.0) g/dL ABG Oxyhemoglobin % ABG Carboxyhemoglobin (0.0-1.6) % ABG Methemoglobin % Seb Test O2 Delivery Device Oxygen Flow Rate L Sodium (140-148) mmol/L Potassium (3.6-5.2) mmol/L Chloride (100-108) mmol/L Carbon Dioxide (21-32) mmol/L Anion Gap (5.0-14.0) mmol/L BUN (7-18) mg/dL Creatinine (0.8-1.3) mg/dL Est Cr Clr Drug Dosing mL/min Estimated GFR (MDRD) (>60) Glucose (74-106) mg/dL Calcium (8.5-10.1) mg/dL Total Bilirubin (0.2-1.0) mg/dL AST (15-37) U/L ALT (12-78) U/L Alkaline Phosphatase (46-116) U/L Troponin I (0.000-0.056) ng/mL NT-Pro-B Natriuret Pep (5-450) pg/mL Total Protein (6.4-8.2) g/dL Albumin (3.4-5.0) g/dL Globulin (2.3-3.5) g/dL Albumin/Globulin Ratio (1.2-2.2) Urine Color (YELLOW) Urine Appearance (CLEAR) Urine pH (5.0-8.0) Ur Specific [place] (1.008-1.030) Urine Protein (NEGATIVE) mg/dL Urine Glucose (UA) (NEGATIVE) mg/dL Urine Ketones (NEGATIVE) mg/dL Urine Occult Blood (NEGATIVE) Urine Nitrite (NEGATIVE) Urine Bilirubin (NEGATIVE) Urine Urobilinogen (0.2-1.0) EU/dL Ur Leukocyte Esterase (NEGATIVE) Urine RBC (0-5) Urine WBC (0-5) Ur Epithelial Cells Amorphous Sediment Urine Bacteria Urine Mucus SARS-CoV-2 RNA (MAIKOL) Negative (NEGATIVE) Result Diagrams: 01/01/20 09:13 01/01/20 09:24 Sepsis Event Note - Evaluation Sepsis Screening Result: No Definite Risk - Focused Exam Vital Signs: Vital Signs Temp Pulse Resp BP Pulse Ox Pulse Ox 01/01/20 10:39 89 11 L 115/66 98 01/01/20 10:09 81 30 H 122/67 95 01/01/20 09:39 83 19 116/65 95 01/01/20 09:34 95 01/01/20 09:27 99.4 F 92 12 136/54 L 96 01/01/20 09:22 99.4 F 92 10 L 136/54 L 99 Consult PN Assessment/Plan Procedures: Procedures ASSAY OF CREATININE (07/13/18) CT THORAX W/DYE (07/13/18) CT THORAX W/O DYE (11/06/18) CULTURE OTHR SPECIMN AEROBIC (07/15/18) DIAGNOSTIC COLONOSCOPY (10/08/13) EMERGENCY DEPT VISIT (07/15/18) EMERGENCY DEPT VISIT (08/10/13) EMERGENCY DEPT VISIT (08/10/13) FUNGUS ISOLATION CULTURE (07/15/18) MYCOBACTERIA CULTURE (07/15/18) ROUTINE VENIPUNCTURE (07/13/18) SMEAR FLUORESCENT/ACID STAI (07/15/18) SMEAR GRAM STAIN (07/15/18) SPECIMEN INFECT AGNT CONCNTJ (07/15/18) TREAT METACARPAL FRACTURE (08/10/13) Problem List Initiated/Reviewed/Updated: Yes Plan: ASSESSMENT AND RECOMMENDATIONS RIGHT PNEUMOTHORAX-status post chest tube placement by Dr. Matias. Likely secondary to a ruptured bleb with known underlying COPD. -Chest tube management per Dr. Matias COPD-at baseline does not require supplemental oxygen. Current increase in shortness of breath likely secondary to right pneumothorax and chest wall pain -Supplemental oxygen as needed -Nebulizer therapy as needed CORONARY ARTERY DISEASE-by history currently asymptomatic. He is status post coronary artery bypass surgery done many years ago -Continue outpatient medical therapy Requesting Provider: BRODERICK Date Consult Requested: 01/01/20 Reason for Consult: Right pneumothorax, COPD, coronary artery disease Patient History Reviewed: Yes Admission H&P Reviewed: No (Not available)
[2020-01-01] MEDS ORDERED: Acetaminophen 325 MG Tab PO PRN (14:34)
[2020-01-01] MEDS ORDERED: Dextrose 5%-Lactated Ringers 1,000 ML IV SCH (14:45)
[2020-01-01] MEDS ORDERED: Albuterol/Ipratropium 3.0-0.5 MG/3 ML Neb Soln INH PRN (15:00)
[2020-01-01] MEDS ORDERED: HYDROmorphone/Normal Saline 15 MG/30 ML PCA IV PRN (15:38)
[2020-01-01] MEDS ORDERED: Naloxone 0.4 MG/ML SDV IV PRN (16:00)
[2020-01-01] MEDS: Albuterol/Ipratropium 3.0-0.5 MG/3 ML Neb Soln INH SCH ×2 (16:01→20:16)
--- NOTE | 2020-01-01 16:01 | OR ---
DATE OF PROCEDURE: 01/01/2020 SURGEON: Rao Matias MD PREOPERATIVE DIAGNOSIS: Spontaneous right pneumothorax. POSTOPERATIVE DIAGNOSIS: Spontaneous right pneumothorax. OPERATIVE PROCEDURE: Right tube thoracostomy. ANESTHESIA: Local plus IV sedation. INDICATION FOR PROCEDURE: The patient presents with acute shortness of breath and underlying severe COPD and is status post chest x-ray and CT scan showing a large right pneumothorax. Plan is to proceed with a right tube thoracostomy. There is no blood present, so we will proceed with an anterior small tube insertion for evacuation of air. Potential risks of the procedure including bleeding, infection, injury to lung and/or other thoracic structures were gone over, and the patient wishes to proceed. DETAILS OF PROCEDURE: In the ER bay, the patient was in a semi-sitting position. The right anterior chest wall was prepped and draped while the patient received 3 mg of Versed IV for sedation. The 3rd interspace in the midclavicular line was anesthetized with some 1% lidocaine and a small incision made, and using blunt dissection, the pleural space was entered. There was some exudative air indicating some degree of tension pneumothorax. An 18-[place] Bryan catheter was then inserted with the aid of a cath guide and inflated with 10 mL of saline. This was then pulled up against the chest wall, cath guide removed, and the tube now placed to Pleur-evac suction catheter sutured to skin with 2-0 Ethibond stitch and dressing applied. Subsequent chest x-ray showed good inflation of the lung with no persistent pneumothorax. The patient tolerated the procedure well. Rao Matias MD /[id number]
[2020-01-01] MEDS: ceFAZolin 1 GM in Premix Bag 1 BAG IV SCH ×2 (16:18→23:28)
--- NOTE | 2020-01-01 16:49 | HP ---
This is an 84-year-old with a severe emphysema-predominant COPD presenting with spontaneous right pneumothorax. A chest tube was inserted with good result. At this point, he has a small intermittent air leak, but the lung is well inflated and the decision was to continue chest tube for least at 24 to 36 hours. If the air leak appears to stop over the 24-hour period, we will pull the tube. If at 48 hours, he is still having air leaks, we will consider a thoracoscopy and the closure of the air leak. Otherwise, we will have the hospitalist to see the patient for general medical followup. Rao Matias MD /[id number]
[2020-01-01] MEDS ORDERED: Niacin 500 MG Cap.ER PO ONE (19:43)
[2020-01-01] MEDS: Simvastatin 20 MG Tab PO SCH (20:15)
[2020-01-01] MEDS: Aspirin 325 MG Tab.EC PO SCH (20:16)
[2020-01-01] MEDS ORDERED: Non-Formulary Medication 1 Each INH SCH (21:00)
[2020-01-02] MEDS: Albuterol/Ipratropium 3.0-0.5 MG/3 ML Neb Soln INH SCH ×4 (07:00→20:23)
[2020-01-02] MEDS ORDERED: Ondansetron 4 MG/2 ML SDV IVPUSH PRN (07:31)
[2020-01-02] MEDS ORDERED: Naloxone 0.4 MG/ML SDV IV PRN (09:00)
[2020-01-02] MEDS ORDERED: Levofloxacin 500 MG Tab PO SCH ×2 (09:00)
[2020-01-02] MEDS ORDERED: Aspirin 325 MG Tab.EC PO SCH ×2 (09:00→17:00)
[2020-01-02] MEDS ORDERED: Mometasone Furoate Nasal Spray 17 GM Canister NAS SCH (09:00)
[2020-01-02] MEDS ORDERED: Morphine PF 150 MG/30 ML PCA Syringe IV PRN (09:00)
[2020-01-02] MEDS ORDERED: methylPREDNISolone Sodium Succinate 40 MG/1 ML SDV IVPUSH ONE (09:00)
[2020-01-02] MEDS: ceFAZolin 1 GM in Premix Bag 1 BAG IV SCH ×3 (09:39→23:12)
[2020-01-02] MEDS ORDERED: Azithromycin 500 MG in Sodium Chloride 0.9% 250 ML IV ONE (10:00)
[2020-01-02] MEDS ORDERED: Benzonatate 100 MG Cap PO PRN (11:28)
--- NOTE | 2020-01-02 12:34 | PCM.CONSN ---
- General Info Date of Service: 01/02/20 Subjective Update: Mr. Preston has continued to experience some shortness of breath as well as episodes of cough. Oxygen saturations do drop with coughing, most recent episodes seem to occur following his DuoNeb. Vital signs have otherwise been stable with good oxygenation on current supplemental oxygen. Functional Status: Reports: Tolerating Diet, Urinating - Review of Systems General: Reports: No Symptoms, Fever Pulmonary: Reports: Shortness of Breath, Pleuritic Chest Pain, Cough. Denies: Sputum, Hemoptysis, Wheezing Cardiovascular: Reports: No Symptoms Gastrointestinal: Reports: No Symptoms - Patient Data Vitals - Most Recent: Last Vital Signs Temp 97.0 F 01/02/20 11:00 Pulse 75 01/02/20 11:00 Resp 17 01/02/20 11:00 BP 103/49 L 01/02/20 11:00 Pulse Ox 89 L 01/02/20 11:00 Weight - Most Recent: 121 lb I&O - Last 24 Hours: Intake & Output 01/01/20 01/02/20 01/02/20 22:59 06:59 14:59 Intake Total 999 1403 296 Output Total 250 160 Balance 749 1243 296 Med Orders - Current: Current Medications Acetaminophen (Tylenol) 650 mg PO Q6H PRN PRN Reason: Pain Albuterol/Ipratropium (Duoneb 3.0-0.5 Mg/3 Ml) 3 ml INH QIDRT [facility], [facility]1983 Last Admin: 01/02/20 10:53 Dose: 3 ml Documented by: Albuterol/Ipratropium (Duoneb 3.0-0.5 Mg/3 Ml) 3 ml INH ASDIRECTED PRN PRN Reason: BREATHING Aspirin (Ecotrin) 325 mg PO 1700 [facility], [facility]1983 Last Admin: 01/01/20 20:16 Dose: 325 mg Documented by: Benzonatate (Tessalon Perles) 200 mg PO TID PRN PRN Reason: Cough Last Admin: 01/02/20 11:53 Dose: 200 mg Documented by: Dextrose/Lactated Ringer's (Dextrose 5%-Lactated Ringers) 1,000 mls @ 75 mls/hr IV ASDIRECTED [facility], [facility]1983 Last Admin: 01/02/20 02:27 Dose: 75 mls/hr Documented by: Cefazolin Sodium/Dextrose 1 gm (/ Premix) 50 mls @ 100 mls/hr IV Q8H GENI Last Admin: 01/02/20 09:39 Dose: 100 mls/hr Documented by: Morphine Sulfate (Morphine [employer] 150 Mg In 30 Ml) 0 mg IV ASDIRECTED PRN; Protocol PRN Reason: Pain Last Admin: 01/02/20 09:30 Dose: 150 mg Documented by: Naloxone HCl (Narcan) 0.1 mg IV ASDIRECTED PRN PRN Reason: decreased respiratory rate Niacin (Niacin) 1,000 mg PO 1700 GENI Ondansetron HCl (Zofran) 4 mg IVPUSH Q4H PRN PRN Reason: Nausea/Vomiting Last Admin: 01/02/20 07:39 Dose: 4 mg Documented by: Simvastatin (Zocor) 40 mg PO BEDTIME [facility] Last Admin: 01/01/20 20:15 Dose: 40 mg Documented by: Discontinued Medications Albuterol (Proventil Neb Soln) 2.5 mg NEB ONETIME ONE Stop: 01/01/20 10:26 Last Admin: 01/01/20 10:32 Dose: 2.5 mg Documented by: Albuterol/Ipratropium (Duoneb 3.0-0.5 Mg/3 Ml) Confirm Administered Dose 3 ml .ROUTE .STK-MED ONE Stop: 01/01/20 09:13 Last Admin: 01/01/20 09:22 Dose: Not Given Documented by: Albuterol/Ipratropium (Duoneb 3.0-0.5 Mg/3 Ml) 3 ml NEB ONETIME ONE Stop: 01/01/20 09:15 Last Admin: 01/01/20 09:22 Dose: 3 ml Documented by: Aspirin (Ecotrin) 325 mg PO DAILY [facility] Aspirin (Ecotrin) 325 mg PO 1700 [facility] Hydromorphone HCl (Dilaudid [employer]chor 15 Mg In Ns 30 Ml) 0 mg IV ASDIRECTED PRN; Pro tocol PRN Reason: SPECIAL EVENTS FUNDRAISER PAIN CONTROL Last Admin: 01/01/20 15:54 Dose: 15 mg Documented by: Azithromycin 500 mg/ Sodium (Chloride) 250 mls @ 250 mls/hr IV ONETIME ONE Stop: 01/02/20 10:59 Last Admin: 01/02/20 10:19 Dose: 250 mls/hr Documented by: Lidocaine/Epinephrine (Xylocaine 1% With Epinephrine 1:100,000) Confirm Administered Dose 50 ml .ROUTE .STK-MED ONE Stop: 01/01/20 11:39 Last Admin: 01/01/20 15:45 Dose: Not Given Documented by: Lidocaine/Epinephrine (Xylocaine 1% With Epinephrine 1:100,000) 3 ml INJECT ONETIME ONE Stop: 01/01/20 11:41 Last Admin: 01/01/20 12:14 Dose: 3 ml Documented by: Magnesium Citrate (Citrate Of Magnesia) 296 ml PO ONETIME ONE Stop: 01/01/20 11:43 Last Admin: 01/01/20 12:11 Dose: 296 ml Documented by: Methylprednisolone Sodium Succinate (Solu-Medrol) 125 mg IVPUSH ONETIME ONE Stop: 01/01/20 09:15 Last Admin: 01/01/20 09:22 Dose: 125 mg Documented by: Methylprednisolone Sodium Succinate (Solu-Medrol) 40 mg IVPUSH ONETIME ONE Stop: 01/02/20 09:01 Last Admin: 01/02/20 09:39 Dose: 40 mg Documented by: Midazolam HCl (Versed 1 Mg/Ml) Confirm Administered Dose 5 mg .ROUTE .STK-MED ONE Stop: 01/01/20 11:37 Last Admin: 01/01/20 15:45 Dose: Not Given Documented by: Midazolam HCl (Versed 1 Mg/Ml) 5 mg IVPUSH ONETIME ONE Stop: 01/01/20 12:03 Last Admin: 01/01/20 11:45 Dose: 5 mg Documented by: Naloxone HCl (Narcan) 0.1 mg IV ASDIRECTED PRN PRN Reason: decreased respiratory rate Niacin (Niacin) 1,000 mg PO ONETIME ONE Stop: 01/01/20 19:44 Last Admin: 01/01/20 20:15 Dose: 1,000 mg Documented by: - Exam Quality Assessment: Supplemental Oxygen, DVT Prophylaxis General: Alert, Oriented, Cooperative, Mild Distress Lungs: Clear to Auscultation, Normal Respiratory Effort, Decreased Breath Sounds. No: Crackles, Rales, Rhonchi, Wheezing Cardiovascular: Regular Rate, Regular Rhythm, No Murmurs GI/Abdominal Exam: Soft, Non-Tender, No Organomegaly, No Distention Extremities: Non-Tender, No Pedal Edema Sepsis Event Note - Evaluation Sepsis Screening Result: No Definite Risk - Focused Exam Vital Signs: Vital Signs Temp Pulse Resp BP Pulse Ox 01/02/20 11:00 97.0 F 75 17 103/49 L 89 L 01/02/20 10:54 70 01/02/20 07:37 92 L 01/02/20 07:22 96.1 F L 56 L 18 122/73 94 L 01/02/20 07:00 70 01/02/20 02:30 98.2 F 73 16 101/54 L 95 01/02/20 01:45 93 L Consult PN Assessment/Plan Procedures: Procedures ASSAY OF CREATININE (07/13/18) CT THORAX W/DYE (07/13/18) CT THORAX W/O DYE (11/06/18) CULTURE OTHR SPECIMN AEROBIC (07/15/18) DIAGNOSTIC COLONOSCOPY (10/08/13) EMERGENCY DEPT VISIT (07/15/18) EMERGENCY DEPT VISIT (08/10/13) EMERGENCY DEPT VISIT (08/10/13) FUNGUS ISOLATION CULTURE (07/15/18) MYCOBACTERIA CULTURE (07/15/18) ROUTINE VENIPUNCTURE (07/13/18) SMEAR FLUORESCENT/ACID STAI (07/15/18) SMEAR GRAM STAIN (07/15/18) SPECIMEN INFECT AGNT CONCNTJ (07/15/18) TREAT METACARPAL FRACTURE (08/10/13) Problem List Initiated/Reviewed/Updated: Yes My Orders Last 24 Hours: My Active Orders 01/02/20 11:28 Benzonatate [Tessalon Perles] 200 mg PO TID PRN Plan: ASSESSMENT AND RECOMMENDATIONS RIGHT PNEUMOTHORAX-status post chest tube placement by Dr. Matias. Likely secondary to a ruptured bleb with known underlying COPD. -Chest tube management per Dr. Matias COPD-at baseline does not require supplemental oxygen. Current increase in shortness of breath likely secondary to right pneumothorax and chest wall pain -Supplemental oxygen as needed -Nebulizer therapy as needed CORONARY ARTERY DISEASE-by history currently asymptomatic. He is status post coronary artery bypass surgery done many years ago -Continue outpatient medical therapy
--- NOTE | 2020-01-02 13:07 | PN ---
DATE OF SERVICE: 01/02/2020 The patient has been afebrile with stable vital signs. He had quite a bit of nausea this morning and we will switch to Dilaudid ASSESSMENT ANALYST with morphine. We will give his Zithromax and Solu-Medrol today via IV route given the nausea. It looks like his chest x-ray does not show any residual pneumothorax and I did not see any air leak. We will clamp the chest tube 1 hour before the chest x-ray tomorrow morning, unclamping it at the end of the x-ray or sooner if he feels short of breath, and if the lung stays up, we will likely pull the tube out tomorrow. Rao Matias MD /[id number]
[2020-01-02] MEDS: Niacin 500 MG Cap.ER PO SCH (16:38)
[2020-01-02] MEDS: Aspirin 325 MG Tab.EC PO SCH (16:38)
[2020-01-02] MEDS: Dextrose 5%-Lactated Ringers 1,000 ML IV SCH (17:52)
[2020-01-02] MEDS: Simvastatin 20 MG Tab PO SCH (20:23)
[2020-01-03] MEDS: Dextrose 5%-Lactated Ringers 1,000 ML IV SCH (04:20)
[2020-01-03] MEDS: Albuterol/Ipratropium 3.0-0.5 MG/3 ML Neb Soln INH SCH ×4 (06:26→20:25)
[2020-01-03] MEDS ORDERED: oxyCODONE 5 MG Tab PO PRN (07:35)
[2020-01-03] MEDS: ceFAZolin 1 GM in Premix Bag 1 BAG IV SCH (09:01)
--- NOTE | 2020-01-03 10:16 | CR ---
CHEST: Portable 01/02/2020 at 4:54 AM CLINICAL HISTORY:Chest tube placement, pneumothorax COMPARISON:01/01/2020 FINDINGS: Right chest tube remains in place. There is a decrease in the right pneumothorax. Patient has had previous sternotomy. Lungs are generally hyperaerated. IMPRESSION: DECREASING RIGHT PNEUMOTHORAX RIGHT CHEST TUBE REMAINS IN PLACE
--- NOTE | 2020-01-03 10:37 | CR ---
CHEST: Portable 01/03/2020 at 7:19 AM CLINICAL HISTORY:Chest tube, pneumothorax COMPARISON:01/03/2020 at 4:11 AM FINDINGS: Right-sided chest tube remains in place. There is minimal apical pneumothorax. There is minimal right pleural fluid. Lungs are emphysematous. There has been previous sternotomy. Impression: Minimal residual apical pneumothorax Right chest tube remains in place Minimal right effusion
--- NOTE | 2020-01-03 10:43 | CR ---
CHEST: Portable 01/03/2020 at 4:11 AM CLINICAL HISTORY:Chest tube COMPARISON:01/02/2020 FINDINGS: Right chest tube remains in place. There is a minimal right apical pneumothorax. There is some mild patchy airspace disease in both lung bases which is likely some atelectasis. Impression: Minimal residual apical pneumothorax Right chest tube remains in place New patchy density in the right infrahilar region is most likely some patchy atelectasis. Underlying COPD Chest 1V Frontal, portable 01/03/2020 at 7:37 AM CLINICAL HISTORY: Chest tubeRight pneumothorax FINDINGS: There is a minimal right apical pneumothorax. This measures approximately 7 mm. Right chest tube is been removed. There is minimal patchy density in both infrahilar regions likely some patchy atelectasis. Minimal right effusion IMPRESSION: Right chest tube is been removed Minimal right apical pneumothorax Minimal patchy perihilar atelectasis bilaterally Minimal right effusion Underlying COPD
[2020-01-03] MEDS ORDERED: Albuterol 0.083% 2.5 MG/3 ML Neb Soln NEB PRN (12:35)
--- NOTE | 2020-01-03 12:36 | PCM.CONSN ---
- General Info Date of Service: 01/03/20 Subjective Update: No acute events overnight. Right-sided chest tube was removed today without incident. Patient did require slightly higher amounts of supplemental oxygen for a while but is now down to 3 L. Pain is well controlled. No fevers. Functional Status: Reports: Pain Controlled, Tolerating Diet - Review of Systems General: Denies: Fever - Patient Data Vitals - Most Recent: Last Vital Signs Temp 36.7 C 01/03/20 11:19 Pulse 64 01/03/20 11:19 Resp 14 01/03/20 11:19 BP 100/46 L 01/03/20 11:19 Pulse Ox 94 L 01/03/20 11:19 Weight - Most Recent: 54.885 kg I&O - Last 24 Hours: Intake & Output 01/02/20 01/03/20 01/03/20 22:59 06:59 14:59 Intake Total 1749 1425 320 Output Total 500 455 125 Balance 1249 970 195 Med Orders - Current: Current Medications Acetaminophen (Tylenol) 650 mg PO Q6H PRN PRN Reason: Pain Albuterol (Proventil Neb Soln) 2.5 mg NEB Q4H PRN PRN Reason: shortness of breath/wheezing Albuterol/Ipratropium (Duoneb 3.0-0.5 Mg/3 Ml) 3 ml INH QIDRT [facility] Last Admin: 01/03/20 10:47 Dose: 3 ml Documented by: Aspirin (Ecotrin) 325 mg PO 1700 [facility] Last Admin: 01/02/20 16:38 Dose: 325 mg Documented by: Benzonatate (Tessalon Perles) 200 mg PO TID PRN PRN Reason: Cough Last Admin: 01/02/20 11:53 Dose: 200 mg Documented by: Naloxone HCl (Narcan) 0.1 mg IV ASDIRECTED PRN PRN Reason: decreased respiratory rate Niacin (Niacin) 1,000 mg PO 1700 [facility] Last Admin: 01/02/20 16:38 Dose: 1,000 mg Documented by: Ondansetron HCl (Zofran) 4 mg IVPUSH Q4H PRN PRN Reason: Nausea/Vomiting Last Admin: 01/02/20 07:39 Dose: 4 mg Documented by: Oxycodone HCl (Oxycodone) 5 mg PO Q4H PRN PRN Reason: Pain Simvastatin (Zocor) 40 mg PO BEDTIME [facility] Last Admin: 01/02/20 20:23 Dose: 40 mg Documented by: Discontinued Medications Albuterol (Proventil Neb Soln) 2.5 mg NEB ONETIME ONE Stop: 01/01/20 10:26 Last Admin: 01/01/20 10:32 Dose: 2.5 mg Documented by: Albuterol/Ipratropium (Duoneb 3.0-0.5 Mg/3 Ml) Confirm Administered Dose 3 ml .ROUTE .STK-MED ONE Stop: 01/01/20 09:13 Last Admin: 01/01/20 09:22 Dose: Not Given Documented by: Albuterol/Ipratropium (Duoneb 3.0-0.5 Mg/3 Ml) 3 ml NEB ONETIME ONE Stop: 01/01/20 09:15 Last Admin: 01/01/20 09:22 Dose: 3 ml Documented by: Albuterol/Ipratropium (Duoneb 3.0-0.5 Mg/3 Ml) 3 ml INH ASDIRECTED PRN PRN Reason: BREATHING Last Admin: 01/02/20 13:21 Dose: 3 ml Documented by: Aspirin (Ecotrin) 325 mg PO DAILY [facility] Aspirin (Ecotrin) 325 mg PO 1700 [facility] Hydromorphone HCl (Dilaudid Collections Technician 15 Mg In Ns 30 Ml) 0 mg IV ASDIRECTED PRN; Protocol PRN Reason: OUT AND OUT CIGAR MAKER HAND PAIN CONTROL Last Admin: 01/01/20 15:54 Dose: 15 mg Documented by: Dextrose/Lactated Ringer's (Dextrose 5%-Lactated Ringers) 1,000 mls @ 75 mls/hr IV ASDIRECTED [facility] Last Admin: 01/02/20 02:27 Dose: 75 mls/hr Documented by: Cefazolin Sodium/Dextrose 1 gm (/ Premix) 50 mls @ 100 mls/hr IV Q8H [facility] Last Admin: 01/03/20 09:01 Dose: Not Given Documented by: Azithromycin 500 mg/ Sodium (Chloride) 250 mls @ 250 mls/hr IV ONETIME ONE Stop: 01/02/20 10:59 Last Admin: 01/02/20 10:19 Dose: 250 mls/hr Documented by: Dextrose/Lactated Ringer's (Dextrose 5%-Lactated Ringers) 1,000 mls @ 100 mls/hr IV ASDIRECTED [facility] Last Admin: 01/03/20 04:20 Dose: 100 mls/hr Documented by: Lidocaine/Epinephrine (Xylocaine 1% With Epinephrine 1:100,000) Confirm Administered Dose 50 ml .ROUTE .STK-MED ONE Stop: 01/01/20 11:39 Last Admin: 01/01/20 15:45 Dose: Not Given Documented by: Lidocaine/Epinephrine (Xylocaine 1% With Epinephrine 1:100,000) 3 ml INJECT ONETIME ONE Stop: 01/01/20 11:41 Last Admin: 01/01/20 12:14 Dose: 3 ml Documented by: Magnesium Citrate (Citrate Of Magnesia) 296 ml PO ONETIME ONE Stop: 01/01/20 11:43 Last Admin: 01/01/20 12:11 Dose: 296 ml Documented by: Methylprednisolone Sodium Succinate (Solu-Medrol) 125 mg IVPUSH ONETIME ONE Stop: 01/01/20 09:15 Last Admin: 01/01/20 09:22 Dose: 125 mg Documented by: Methylprednisolone Sodium Succinate (Solu-Medrol) 40 mg IVPUSH ONETIME ONE Stop: 01/02/20 09:01 Last Admin: 01/02/20 09:39 Dose: 40 mg Documented by: Midazolam HCl (Versed 1 Mg/Ml) Confirm Administered Dose 5 mg .ROUTE .STK-MED ONE Stop: 01/01/20 11:37 Last Admin: 01/01/20 15:45 Dose: Not Given Documented by: Midazolam HCl (Versed 1 Mg/Ml) 5 mg IVPUSH ONETIME ONE Stop: 01/01/20 12:03 Last Admin: 01/01/20 11:45 Dose: 5 mg Documented by: Morphine Sulfate (Morphine Collections Technician 150 Mg In 30 Ml) 0 mg IV ASDIRECTED PRN; Protocol PRN Reason: Pain Last Admin: 01/02/20 09:30 Dose: 150 mg Documented by: Naloxone HCl (Narcan) 0.1 mg IV ASDIRECTED PRN PRN Reason: decreased respiratory rate Niacin (Niacin) 1,000 mg PO ONETIME ONE Stop: 01/01/20 19:44 Last Admin: 01/01/20 20:15 Dose: 1,000 mg Documented by: - Exam Quality Assessment: Supplemental Oxygen General: Alert, Oriented, Cooperative, No Acute Distress Lungs: Normal Respiratory Effort, Rhonchi (moderate diffuse). No: Wheezing Cardiovascular: Regular Rate, Regular Rhythm GI/Abdominal Exam: Soft, No Distention Extremities: No Pedal Edema. No: Increased Warmth Skin: Warm, Dry Psy/Mental Status: Alert, Normal Affect Sepsis Event Note - Evaluation Sepsis Screening Result: No Definite Risk - Focused Exam Vital Signs: Vital Signs Temp Pulse Resp BP Pulse Ox Pulse Ox 01/03/20 11:19 36.7 C 64 14 100/46 L 94 L 01/03/20 10:47 69 90 L 01/03/20 08:00 36.1 C 64 14 97/54 L 94 L 01/03/20 07:38 89 L 01/03/20 07:22 36.8 C 67 20 109/49 L 93 L 01/03/20 06:00 69 91 L 01/03/20 02:30 36.7 C 76 20 104/49 L 94 L 01/03/20 01:25 99 Consult PN Assessment/Plan Procedures: Procedures ASSAY OF CREATININE (07/13/18) CT THORAX W/DYE (07/13/18) CT THORAX W/O DYE (11/06/18) CULTURE OTHR SPECIMN AEROBIC (07/15/18) DIAGNOSTIC COLONOSCOPY (10/08/13) EMERGENCY DEPT VISIT (07/15/18) EMERGENCY DEPT VISIT (08/10/13) EMERGENCY DEPT VISIT (08/10/13) FUNGUS ISOLATION CULTURE (07/15/18) MYCOBACTERIA CULTURE (07/15/18) ROUTINE VENIPUNCTURE (07/13/18) SMEAR FLUORESCENT/ACID STAI (07/15/18) SMEAR GRAM STAIN (07/15/18) SPECIMEN INFECT AGNT CONCNTJ (07/15/18) TREAT METACARPAL FRACTURE (08/10/13) Problem List Initiated/Reviewed/Updated: Yes My Orders Last 24 Hours: My Active Orders 01/03/20 12:35 RT Aerosol Therapy [RC] ASDIRECTED Albuterol [Proventil Neb Soln] 2.5 mg NEB Q4H PRN Plan: ASSESSMENT AND RECOMMENDATIONS RIGHT PNEUMOTHORAX-chest tube was removed today and the patient has remained stable. -Postoperative management per Dr. Matias COPD-at baseline does require supplemental oxygen at 2 L/min. Nearly back to baseline. No evidence for acute exacerbation. -Supplemental oxygen as needed -Nebulizer therapy as needed CORONARY ARTERY DISEASE-by history currently asymptomatic. He is status post coronary artery bypass surgery done many years ago -Continue outpatient medical therapy Disposition-patient is interested in home care at the time of discharge Domingo Orellana MD
--- NOTE | 2020-01-03 13:10 | PN ---
DATE OF SERVICE: 01/03/2020 SUBJECTIVE: Rajinder had very little out of his chest tube in the past 24 hours, 5 mL. Vital signs have been stable. He was a little bit short of breath after the chest x-ray due to the chest tube being clamping. It was repeated and normal. His chest tube was removed by Rao Matias MD. Followup x-ray was ordered. Vital signs have been stable, been afebrile. REVIEW OF SYSTEMS: Remainder of review of systems negative for any pertinent positives and negatives. OBJECTIVE: GENERAL: Rajinder is a pleasant 84-year-old male, alert and orientated. VITAL SIGNS: TPR at 0722; 98.3, 67, 20, O2 saturation is 93% on 5 L. It was later checked at 0800 and he was 94%. HEENT: Negative. NECK: Supple. HEART: Regular rate and rhythm. LUNGS: Clear. ABDOMEN: Negative. EXTREMITIES: Negative. ASSESSMENT: Right tube thoracostomy for spontaneous right pneumothorax. Date of procedure 01/01/2020. Surgeon: Rao Matias MD. PLAN: 1. PA and lateral chest x-ray in a.m. 2. May remove dressing tomorrow morning after rounds. 3. Oxycodone 5 mg q.4 hours p.r.n. pain. MANAGER QUANTITATIVE discontinued. 4. Continue use of incentive spirometer. 5. We will evaluate p.r.n. or in a.m. Alley Chicas PA-C /[id number]
[2020-01-03] MEDS: Aspirin 325 MG Tab.EC PO SCH (16:18)
[2020-01-03] MEDS: Niacin 500 MG Cap.ER PO SCH (16:18)
[2020-01-03] MEDS: Simvastatin 20 MG Tab PO SCH (20:24)
[2020-01-04] MEDS: Albuterol/Ipratropium 3.0-0.5 MG/3 ML Neb Soln INH SCH ×2 (07:11→11:07)
[2020-01-04] MEDS ORDERED: Magnesium Hydroxide 400 MG/5 ML Susp 30 ML Cup PO PRN (07:45)
[2020-01-04] MEDS ORDERED: Docusate Sodium 100 MG Cap PO PRN (07:45)
[2020-01-04] MEDS ORDERED: Polyethylene Glycol 3350 Powder 17 GM Packet PO PRN (07:45)
--- NOTE | 2020-01-04 09:15 | CR ---
CHEST: 2 view CLINICAL HISTORY:History pneumothorax, chest tube removed COMPARISON:01/03/2020 FINDINGS: Posterior in the right lung there is a small air-fluid level consistent with a hydropneumothorax. This may be loculated. Lungs are emphysematous. There is a minimal left effusion. Impression: Small loculated hydropneumothorax in the right posterior chest Small left effusion Changes of COPD
--- NOTE | 2020-01-04 13:46 | DISCH ---
ADMISSION DIAGNOSES: Right pneumothorax, chronic obstructive pulmonary disease, low O2 saturation, history of right lower lobe lung mass, chronic respiratory failure, centrilobular emphysema on home O2, coronary artery disease. DISCHARGE DIAGNOSES: Right tube thoracostomy for spontaneous right pneumothorax. Date of procedure: 01/01/2020. Surgeon: Rao Matias MD. HISTORY: Rajinder Preston is an 84-year-old male, who presented with acute shortness of breath and underlying severe chronic obstructive pulmonary disease and is status post chest x-ray and CT scan showing a large right pneumothorax. After preoperative evaluation and discussion of possible risks and possible complications, he wished to proceed with surgical procedure. HOSPITAL COURSE: Above procedure on 01/01/2020. No complications. He was seen by the hospitalist, Victor M Finley MD, continued with supplemental oxygen as needed and nebulizers p.r.n. On 01/02/2020, Rajinder remained afebrile. He had some nausea from the Dilaudid DITCH RIDER, so was changed to morphine. Zithromax and Solu-Medrol were given IV. Chest x-ray showed no residual pneumothorax and no air leak. The chest tube was clamped on 01/02/2020 and chest x- ray looked good. On 01/03/2020, the chest tube was removed and the DITCH RIDER was discontinued and started on oxycodone. On 01/04/2020, Rajinder was able to be discharged to home. Afebrile, vital signs stable, O2 was 94% to 90% on 2 to 3 L of O2. Rajinder was able to be discharged to home on 01/04/2020. PHYSICAL EXAMINATION: GENERAL: Rajinder Preston is a pleasant 84-year-old male. VITAL SIGNS: Height is 5 feet 10.08 inches, weight is 121 pounds, BMI is 17. Vital signs at 0700, TPR 98.6, 98, 22, blood pressure 118/59. HEENT: Negative. NECK: Supple. HEART: Regular rate and rhythm. LUNGS: He does have a loose sounding cough. Good air exchange in right and left lungs. Chest tube site dressing dry and intact. ABDOMEN: Negative. EXTREMITIES: Negative. NEUROLOGIC: Intact. DISPOSITION: Discharged to home. CONDITION: Stable and improving. FOLLOWUP: Appointment with Rao Matias MD, at [facility] on 01/12/2020 at 12:00 p.m. It is a required postop appointment with chest x-ray, PA and lateral, before appointment. HOME MEDICATIONS: 1. Oxycodone 5 mg q.6 hours p.r.n. pain, #28. 2. Tylenol 650 mg oral q.6 hours p.r.n. pain. 3. He is to resume his home medications of: a. Albuterol/Proventil inhaler 2 puffs inhalation every 4 hours p.r.n. wheezing. b. Aspirin 325 mg oral daily. c. Azithromycin 500 mg oral as directed Friday, Friday, Friday. d. Vitamin D3 5000 International Units daily. e. Flonase 16 g nasal daily. f. Glucosamine/chondroitin 1 oral daily. g. Atrovent 0.06% nasal spray 2 sprays in each nostril 4 times a day. h. DuoNebs 3 mL inhalation every 4 hours p.r.n. shortness of breath. i. Niacin 1000 mg oral at bedtime. j. [place]-3 2 capsules oral daily. k. Zocor 40 mg oral at bedtime. l. Vitamin B complex 1 tablet oral daily. m. Prednisone 5 mg oral daily. DIET AFTER DISCHARGE: Usual diet as tolerated. Drink 8 to 10 glasses of water a day. ACTIVITY: As tolerated. May shower. DISCHARGE INSTRUCTIONS: Notify provider if any fever, increased pain, increase in shortness of breath or cough, nausea, or vomiting. Wound incision care; keep site clean and dry. Change dressing daily over chest tube site. SPECIAL INSTRUCTION: Use incentive spirometer 10 times every hour while awake for 2 weeks.
== END 2020-01-04 13:30 | disposition home health service (06) | DRG 201 ==
LOC: JP.ED 08:56 → JP.MS 13:58
PROVIDERS: ADMIT Surgery; ATTEND Surgery
PROC: 0W9900Z Drainage of Right Pleural Cavity with Drainage Device, Open Approach (ICD-10-PCS; principal; 2020-01-01)
DX: J93.9 Pneumothorax, unspecified (principal); J93.83 Other pneumothorax; H54.7 Unspecified visual loss; J44.9 Chronic obstructive pulmonary disease, unspecified; I25.10 Atherosclerotic heart disease of native coronary artery without angina pectoris; E78.00 Pure hypercholesterolemia, unspecified; Z20.828 Contact with and (suspected) exposure to other viral communicable diseases; Z95.1 Presence of aortocoronary bypass graft; Z98.890 Other specified postprocedural states; Z88.5 Allergy status to narcotic agent; Z88.1 Allergy status to other antibiotic agents; Z79.82 Long term (current) use of aspirin; Z79.890 Hormone replacement therapy; Z79.52 Long term (current) use of systemic steroids; Z79.899 Other long term (current) drug therapy; I25.2 Old myocardial infarction; Z90.49 Acquired absence of other specified parts of digestive tract; Z87.891 Personal history of nicotine dependence
CPT/HCPCS: 36415; 36600; 71045 ×2; 71250; 80053; 81001; 82803; 83880; 84484; 85025; 96374; 96375; 99285; A9270; J2250; J2930; U0002; 71046; 71046-26; 93010; 94640; 94762; J0456; J0690; J1170; J2270; J2405; J2920; J7050; J7121; J7620-GY

== ENCOUNTER 2021-10-21 18:37 | Observation (INO) | payer MEDICARE, BC ==
[2021-10-21] MEDS ORDERED: Methocarbamol 500 MG Tab PO ONE (18:49)
[2021-10-21 19:22] LABS: ESTIMATED GFR 75 mL/min (>60)
[2021-10-21] MEDS ORDERED: methylPREDNISolone Sodium Succinate 125 MG/2 ML SDV IVPUSH ONE (20:18)
[2021-10-21] MEDS ORDERED: Albuterol/Ipratropium 3.0-0.5 MG/3 ML Neb Soln NEB ONE (21:14)
[2021-10-21] MEDS ORDERED: Albuterol/Ipratropium 3.0-0.5 MG/3 ML Neb Soln INH PRN (22:24)
[2021-10-21] MEDS ORDERED: Acetaminophen 325 MG Tab PO PRN (22:28)
[2021-10-21] MEDS ORDERED: cefTRIAXone 1 GM Vial IM SCH (22:30)
[2021-10-21] MEDS ORDERED: Albuterol/Ipratropium 3.0-0.5 MG/3 ML Neb Soln NEB PRN (22:58)
[2021-10-21] MEDS ORDERED: Methocarbamol 500 MG Tab PO PRN (23:00)
[2021-10-21] MEDS ORDERED: Sodium Chloride 0.9% 50 ML ONE (23:20)
[2021-10-21] MEDS: cefTRIAXone 1 GM in Sodium Chloride 0.9% 50 ML IV SCH (23:24)
[2021-10-21] MEDS ORDERED: ROSUVASTATIN 20 MG PO SCH (23:45)
[2021-10-21] MEDS ORDERED: ASPIRIN 325 MG PO SCH (23:45)
[2021-10-21] MEDS ORDERED: EZETIMIBE 10 MG PO SCH (23:45)
[2021-10-22] MEDS: cefTRIAXone 1 GM in Sodium Chloride 0.9% 50 ML IV SCH (00:01)
[2021-10-22] MEDS: methylPREDNISolone Sodium Succinate 125 MG/2 ML SDV IVPUSH SCH ×2 (01:16→08:24)
[2021-10-22] MEDS ORDERED: Methocarbamol 500 MG Tab PO PRN (02:00)
[2021-10-22] MEDS ORDERED: Non-Formulary Medication 1 Each (Ipratropium [Atrovent 0.06% Nasal Spray] 15 ML Bottle) NAS SCH (06:00)
[2021-10-22] MEDS ORDERED: Arformoterol 15 MCG/2 ML Neb Soln INH SCH (07:00)
[2021-10-22] MEDS ORDERED: Budesonide 0.5 MG/2 ML Neb Susp INH SCH (07:00)
[2021-10-22] MEDS ORDERED: Aspirin 325 MG Tab.EC PO SCH (09:00)
[2021-10-22] MEDS ORDERED: Cholecalciferol (Vitamin D3) 25 MCG **PTOM PO SCH (09:00)
[2021-10-22] MEDS ORDERED: Non-Formulary Medication 1 Each (Fluticasone Propionate [Flonase] 16 GM Bottle) NS SCH (09:00)
[2021-10-22] MEDS ORDERED: [UNRECOGNIZED DRUG - OTHER] IH SCH (09:00)
[2021-10-22] MEDS ORDERED: Sodium Chloride 0.9% Inhalation Soln 3 ML Neb INH PRN (09:53)
[2021-10-22] MEDS ORDERED: Albuterol/Ipratropium 3.0-0.5 MG/3 ML Neb Soln NEB SCH (11:00)
[2021-10-22] MEDS ORDERED: guaiFENesin 600 MG Tab.ER PO SCH (14:00)
[2021-10-22] MEDS ORDERED: Rosuvastatin 10 MG Tab PO SCH (21:00)
== END 2021-10-22 13:05 | disposition home or self-care (01) ==
LOC: JP.ED 18:37 → JP.MS 21:45
PROVIDERS: ADMIT Family Medicine; ATTEND Family Medicine
DX: J44.1 Chronic obstructive pulmonary disease with (acute) exacerbation (principal); I50.41 Acute combined systolic (congestive) and diastolic (congestive) heart failure; J96.01 Acute respiratory failure with hypoxia; G24.3 Spasmodic torticollis; M50.30 Other cervical disc degeneration, unspecified cervical region; M47.812 Spondylosis without myelopathy or radiculopathy, cervical region; Z99.81 Dependence on supplemental oxygen; Z20.822 Contact with and (suspected) exposure to COVID-19; Z79.899 Other long term (current) drug therapy; Z79.51 Long term (current) use of inhaled steroids; Z79.82 Long term (current) use of aspirin; Z88.5 Allergy status to narcotic agent; Z88.1 Allergy status to other antibiotic agents; Z95.1 Presence of aortocoronary bypass graft; Z98.890 Other specified postprocedural states; Z90.49 Acquired absence of other specified parts of digestive tract; Z87.891 Personal history of nicotine dependence
CPT/HCPCS: 36415; 71046; 72040; 80048; 80053; 83880; 84484; 85025; 86140; 93005; 93306; 94640; 96365; 96375; 96376; 97140; 97162; 97535; 99285; A9270; G0378; J0696; J2930; U0002; 96374; J7605; J7620

== ENCOUNTER 2022-05-10 11:08 | Inpatient (IN) | payer MEDICARE, BC ==
[2022-05-10] MEDS ORDERED: Lactated Ringers 1,000 ML IV ONE (11:54)
[2022-05-10] MEDS ORDERED: methylPREDNISolone Sodium Succinate 125 MG/2 ML SDV IVPUSH ONE (11:56)
[2022-05-10] MEDS ORDERED: Albuterol/Ipratropium 3.0-0.5 MG/3 ML Neb Soln NEB ONE (11:56)
[2022-05-10 12:41] LABS: ESTIMATED GFR 87 mL/min (>60); TROPONIN I HIGH SENSITIVITY 47.2 pg/mL (<=60.3)
[2022-05-10 12:55] LABS: CORONAVIRUS COVID-19 NAA NEGATIVE (NEGATIVE)
[2022-05-10] MEDS ORDERED: Midazolam 1 MG/ML 5 ML SDV IVPUSH ONE (14:23)
[2022-05-10] MEDS ORDERED: Midazolam 1 MG/ML 2 ML SDV IVPUSH ONE (14:25)
[2022-05-10] MEDS ORDERED: Midazolam 1 MG/ML 5 ML SDV ONE (14:43)
[2022-05-10] MEDS ORDERED: Lidocaine 1% with EPINEPHrine 1:100,000 50 ML MDV ONE (14:47)
[2022-05-10] MEDS ORDERED: Lidocaine 1% with EPINEPHrine 1:100,000 50 ML MDV INJECT ONE (14:55)
[2022-05-10] MEDS ORDERED: Acetaminophen 325 MG Tab PO SCH (17:00)
[2022-05-10] MEDS ORDERED: Ondansetron 4 MG/2 ML SDV IVPUSH PRN (17:00)
[2022-05-10] MEDS ORDERED: Albuterol/Ipratropium 3.0-0.5 MG/3 ML Neb Soln INH PRN (17:03)
[2022-05-10] MEDS: Dextrose 5%-Lactated Ringers 1,000 ML IV SCH (17:17)
[2022-05-10] MEDS: ceFAZolin 1 GM in Premix Bag 1 BAG IV SCH (17:36)
[2022-05-10] MEDS ORDERED: Acetaminophen 325 MG Tab PO PRN (17:41)
[2022-05-10] MEDS: HYDROmorphone 2 MG Tab PO PRN (19:34)
[2022-05-10] MEDS: Rosuvastatin 10 MG Tab PO SCH (20:49)
[2022-05-10] MEDS: Arformoterol 15 MCG/2 ML Neb Soln INH SCH (20:50)
[2022-05-10] MEDS: Albuterol/Ipratropium 3.0-0.5 MG/3 ML Neb Soln INH SCH (20:56)
[2022-05-10] MEDS: Budesonide 0.5 MG/2 ML Neb Susp INH SCH (20:57)
[2022-05-11] MEDS: ceFAZolin 1 GM in Premix Bag 1 BAG IV SCH ×3 (01:28→17:04)
[2022-05-11] MEDS: Albuterol/Ipratropium 3.0-0.5 MG/3 ML Neb Soln INH SCH ×4 (07:03→20:09)
[2022-05-11] MEDS: Arformoterol 15 MCG/2 ML Neb Soln INH SCH ×2 (07:04→20:09)
[2022-05-11] MEDS: Tiotropium Bromide 4 GM Inhalation Spray (2.5mcg/1 dose; 10 doses) INH SCH (07:04)
[2022-05-11] MEDS: Budesonide 0.5 MG/2 ML Neb Susp INH SCH ×2 (07:04→20:10)
[2022-05-11] MEDS: Dextrose 5%-Lactated Ringers 1,000 ML IV SCH ×2 (07:30→20:27)
[2022-05-11] MEDS: Pantoprazole 40 MG Tab.CR PO SCH (08:04)
[2022-05-11] MEDS: Aspirin 325 MG Tab.EC PO SCH (08:04)
[2022-05-11] MEDS: Rosuvastatin 10 MG Tab PO SCH (20:09)
[2022-05-12] MEDS: ceFAZolin 1 GM in Premix Bag 1 BAG IV SCH ×3 (01:12→17:03)
[2022-05-12] MEDS: Budesonide 0.5 MG/2 ML Neb Susp INH SCH ×2 (07:14→21:02)
[2022-05-12] MEDS: Albuterol/Ipratropium 3.0-0.5 MG/3 ML Neb Soln INH SCH ×4 (07:14→21:01)
[2022-05-12] MEDS: Tiotropium Bromide 4 GM Inhalation Spray (2.5mcg/1 dose; 10 doses) INH SCH (07:14)
[2022-05-12] MEDS: Arformoterol 15 MCG/2 ML Neb Soln INH SCH ×2 (07:14→21:02)
[2022-05-12] MEDS: Aspirin 325 MG Tab.EC PO SCH (08:18)
[2022-05-12] MEDS: Pantoprazole 40 MG Tab.CR PO SCH (08:18)
[2022-05-12] MEDS: Dextrose 5%-Lactated Ringers 1,000 ML IV SCH ×2 (08:47→22:37)
[2022-05-12] MEDS ORDERED: Sodium Chloride 0.65% Nasal Spray 45 ML Bottle NAS PRN (14:21)
[2022-05-12] MEDS: guaiFENesin 600 MG Tab.ER PO PRN (17:02)
[2022-05-12] MEDS: Rosuvastatin 10 MG Tab PO SCH (21:02)
[2022-05-13] MEDS: ceFAZolin 1 GM in Premix Bag 1 BAG IV SCH ×3 (01:56→17:56)
[2022-05-13] MEDS ORDERED: Midazolam 1 MG/ML 2 ML SDV ONE (07:02)
[2022-05-13] MEDS ORDERED: Propofol 200 MG/20 ML SDV ONE ×2 (07:03→08:08)
[2022-05-13] MEDS ORDERED: fentaNYL 100 MCG/2 ML SDV ONE (07:03)
[2022-05-13] MEDS ORDERED: Bupivacaine 0.5%/EPINEPHrine 1:200,000 50 ML MDV ONE (07:06)
[2022-05-13] MEDS: Albuterol/Ipratropium 3.0-0.5 MG/3 ML Neb Soln INH SCH ×4 (07:27→20:49)
[2022-05-13] MEDS: Tiotropium Bromide 4 GM Inhalation Spray (2.5mcg/1 dose; 10 doses) INH SCH (07:27)
[2022-05-13] MEDS: Arformoterol 15 MCG/2 ML Neb Soln INH SCH ×2 (07:27→20:42)
[2022-05-13] MEDS: Budesonide 0.5 MG/2 ML Neb Susp INH SCH ×2 (07:27→20:49)
[2022-05-13] MEDS: Pantoprazole 40 MG Tab.CR PO SCH (07:46)
[2022-05-13] MEDS ORDERED: Bupivacaine 0.5%/EPINEPHrine 1:200,000 50 ML MDV INFILT ONE (08:35)
[2022-05-13] MEDS: Dextrose 5%-Lactated Ringers 1,000 ML IV SCH ×2 (09:15→23:07)
[2022-05-13] MEDS: Aspirin 325 MG Tab.EC PO SCH (09:38)
[2022-05-13] MEDS: Rosuvastatin 10 MG Tab PO SCH (20:52)
[2022-05-14] MEDS: ceFAZolin 1 GM in Premix Bag 1 BAG IV SCH ×4 (02:44→17:47)
[2022-05-14 05:21] LABS: ESTIMATED GFR 84 mL/min (>60)
[2022-05-14] MEDS: Pantoprazole 40 MG Tab.CR PO SCH (07:06)
[2022-05-14] MEDS: Arformoterol 15 MCG/2 ML Neb Soln INH SCH ×2 (07:16→21:53)
[2022-05-14] MEDS: Albuterol/Ipratropium 3.0-0.5 MG/3 ML Neb Soln INH SCH ×4 (07:16→21:55)
[2022-05-14] MEDS: Budesonide 0.5 MG/2 ML Neb Susp INH SCH ×2 (07:16→21:55)
[2022-05-14] MEDS: Tiotropium Bromide 4 GM Inhalation Spray (2.5mcg/1 dose; 10 doses) INH SCH (07:16)
[2022-05-14] MEDS ORDERED: Magnesium Sulfate/Water 2 GM/50 ML BAG IV SCH (07:45)
[2022-05-14] MEDS: Magnesium Sulfate/Water 2 GM/50 ML BAG IV SCH ×2 (08:41→14:41)
[2022-05-14] MEDS: Aspirin 325 MG Tab.EC PO SCH (08:43)
[2022-05-14] MEDS: HYDROmorphone 2 MG Tab PO PRN ×2 (16:55→22:05)
[2022-05-14] MEDS: Rosuvastatin 10 MG Tab PO SCH (21:55)
[2022-05-15 05:13] LABS: ESTIMATED GFR 87 mL/min (>60)
[2022-05-15] MEDS: Arformoterol 15 MCG/2 ML Neb Soln INH SCH ×2 (07:12→21:03)
[2022-05-15] MEDS: Albuterol/Ipratropium 3.0-0.5 MG/3 ML Neb Soln INH SCH ×4 (07:12→21:06)
[2022-05-15] MEDS: Tiotropium Bromide 4 GM Inhalation Spray (2.5mcg/1 dose; 10 doses) INH SCH (07:12)
[2022-05-15] MEDS: Budesonide 0.5 MG/2 ML Neb Susp INH SCH ×2 (07:12→21:06)
[2022-05-15] MEDS: Pantoprazole 40 MG Tab.CR PO SCH (09:23)
[2022-05-15] MEDS: Aspirin 325 MG Tab.EC PO SCH (09:23)
[2022-05-15] MEDS: Rosuvastatin 10 MG Tab PO SCH (21:06)
[2022-05-15] MEDS: HYDROmorphone 2 MG Tab PO PRN (21:16)
[2022-05-16 04:40] LABS: ESTIMATED GFR 74 mL/min (>60)
[2022-05-16] MEDS: Albuterol/Ipratropium 3.0-0.5 MG/3 ML Neb Soln INH SCH ×4 (07:20→20:00)
[2022-05-16] MEDS: Budesonide 0.5 MG/2 ML Neb Susp INH SCH ×2 (07:20→20:03)
[2022-05-16] MEDS: Tiotropium Bromide 4 GM Inhalation Spray (2.5mcg/1 dose; 10 doses) INH SCH (07:20)
[2022-05-16] MEDS: Arformoterol 15 MCG/2 ML Neb Soln INH SCH ×2 (07:20→20:00)
[2022-05-16] MEDS: Pantoprazole 40 MG Tab.CR PO SCH (07:37)
[2022-05-16] MEDS: Aspirin 325 MG Tab.EC PO SCH (09:14)
[2022-05-16] MEDS: Docusate Sodium 100 MG Cap PO SCH ×2 (09:14→20:00)
[2022-05-16] MEDS: Bisacodyl 5 MG Tab PO SCH ×2 (09:15→20:01)
[2022-05-16] MEDS: HYDROmorphone 2 MG Tab PO PRN ×2 (13:47→21:05)
[2022-05-16] MEDS: Rosuvastatin 10 MG Tab PO SCH (20:01)
[2022-05-17] MEDS: Albuterol/Ipratropium 3.0-0.5 MG/3 ML Neb Soln INH SCH ×4 (07:11→20:35)
[2022-05-17] MEDS: Arformoterol 15 MCG/2 ML Neb Soln INH SCH ×2 (07:11→20:26)
[2022-05-17] MEDS: Tiotropium Bromide 4 GM Inhalation Spray (2.5mcg/1 dose; 10 doses) INH SCH (07:12)
[2022-05-17] MEDS: Budesonide 0.5 MG/2 ML Neb Susp INH SCH ×2 (07:12→20:36)
[2022-05-17] MEDS: Aspirin 325 MG Tab.EC PO SCH ×2 (07:30→12:35)
[2022-05-17] MEDS: Bisacodyl 5 MG Tab PO SCH ×3 (07:31→20:26)
[2022-05-17] MEDS: Docusate Sodium 100 MG Cap PO SCH ×3 (07:31→20:26)
[2022-05-17] MEDS: Pantoprazole 40 MG Tab.CR PO SCH (07:31)
[2022-05-17] MEDS: HYDROmorphone 2 MG Tab PO PRN (19:38)
[2022-05-17] MEDS: Rosuvastatin 10 MG Tab PO SCH (20:26)
[2022-05-18 05:15] LABS: ESTIMATED GFR 84 mL/min (>60)
[2022-05-18] MEDS: Budesonide 0.5 MG/2 ML Neb Susp INH SCH ×2 (07:19→20:56)
[2022-05-18] MEDS: Tiotropium Bromide 4 GM Inhalation Spray (2.5mcg/1 dose; 10 doses) INH SCH (07:20)
[2022-05-18] MEDS: Arformoterol 15 MCG/2 ML Neb Soln INH SCH ×2 (07:20→20:57)
[2022-05-18] MEDS: Albuterol/Ipratropium 3.0-0.5 MG/3 ML Neb Soln INH SCH ×4 (07:20→20:56)
[2022-05-18] MEDS: Docusate Sodium 100 MG Cap PO SCH ×2 (08:51→20:56)
[2022-05-18] MEDS: Bisacodyl 5 MG Tab PO SCH ×2 (08:51→20:57)
[2022-05-18] MEDS: Pantoprazole 40 MG Tab.CR PO SCH (08:51)
[2022-05-18] MEDS: Aspirin 325 MG Tab.EC PO SCH (08:52)
[2022-05-18] MEDS ORDERED: Enoxaparin 40 MG/0.4 ML Syringe SUBCUT SCH (10:30)
[2022-05-18] MEDS: Rosuvastatin 10 MG Tab PO SCH (20:57)
[2022-05-19] MEDS: Albuterol/Ipratropium 3.0-0.5 MG/3 ML Neb Soln INH SCH ×4 (07:22→20:21)
[2022-05-19] MEDS: Budesonide 0.5 MG/2 ML Neb Susp INH SCH ×2 (07:30→20:21)
[2022-05-19] MEDS: Arformoterol 15 MCG/2 ML Neb Soln INH SCH ×2 (07:30→20:11)
[2022-05-19] MEDS: Tiotropium Bromide 4 GM Inhalation Spray (2.5mcg/1 dose; 10 doses) INH SCH (07:30)
[2022-05-19] MEDS: Pantoprazole 40 MG Tab.CR PO SCH (07:45)
[2022-05-19] MEDS: Docusate Sodium 100 MG Cap PO SCH ×2 (08:49→20:11)
[2022-05-19] MEDS: Bisacodyl 5 MG Tab PO SCH ×2 (08:50→20:10)
[2022-05-19] MEDS: Aspirin 325 MG Tab.EC PO SCH (08:51)
[2022-05-19] MEDS: Enoxaparin 30 MG/0.3 ML Syringe SUBCUT SCH (08:52)
[2022-05-19] MEDS: HYDROmorphone 2 MG Tab PO PRN (19:42)
[2022-05-19] MEDS: Rosuvastatin 10 MG Tab PO SCH (20:11)
[2022-05-20] MEDS: Arformoterol 15 MCG/2 ML Neb Soln INH SCH ×2 (07:01→20:39)
[2022-05-20] MEDS: Tiotropium Bromide 4 GM Inhalation Spray (2.5mcg/1 dose; 10 doses) INH SCH (07:01)
[2022-05-20] MEDS: Albuterol/Ipratropium 3.0-0.5 MG/3 ML Neb Soln INH SCH ×4 (07:01→21:13)
[2022-05-20] MEDS: Budesonide 0.5 MG/2 ML Neb Susp INH SCH ×2 (07:01→21:31)
[2022-05-20] MEDS: Pantoprazole 40 MG Tab.CR PO SCH (07:47)
[2022-05-20] MEDS: Enoxaparin 30 MG/0.3 ML Syringe SUBCUT SCH (08:28)
[2022-05-20] MEDS: Aspirin 325 MG Tab.EC PO SCH (08:28)
[2022-05-20] MEDS: Docusate Sodium 100 MG Cap PO SCH ×2 (08:28→20:39)
[2022-05-20] MEDS: Bisacodyl 5 MG Tab PO SCH ×2 (08:28→20:39)
[2022-05-20] MEDS: Magnesium Sulfate/Water 2 GM/50 ML BAG IV SCH ×3 (08:28→20:30)
[2022-05-20] MEDS: Rosuvastatin 10 MG Tab PO SCH (20:40)
[2022-05-21] MEDS: Magnesium Sulfate/Water 2 GM/50 ML BAG IV SCH (01:42)
[2022-05-21 05:26] LABS: ESTIMATED GFR 84 mL/min (>60)
[2022-05-21] MEDS: Budesonide 0.5 MG/2 ML Neb Susp INH SCH ×2 (06:59→20:49)
[2022-05-21] MEDS: Albuterol/Ipratropium 3.0-0.5 MG/3 ML Neb Soln INH SCH ×4 (06:59→20:46)
[2022-05-21] MEDS: Arformoterol 15 MCG/2 ML Neb Soln INH SCH ×2 (07:00→20:46)
[2022-05-21] MEDS: Tiotropium Bromide 4 GM Inhalation Spray (2.5mcg/1 dose; 10 doses) INH SCH (07:13)
[2022-05-21] MEDS: Docusate Sodium 100 MG Cap PO SCH ×2 (08:10→20:45)
[2022-05-21] MEDS: Pantoprazole 40 MG Tab.CR PO SCH (08:10)
[2022-05-21] MEDS: Aspirin 325 MG Tab.EC PO SCH (08:10)
[2022-05-21] MEDS: Bisacodyl 5 MG Tab PO SCH ×2 (08:10→20:45)
[2022-05-21] MEDS: Enoxaparin 30 MG/0.3 ML Syringe SUBCUT SCH (08:10)
[2022-05-21] MEDS: HYDROmorphone 2 MG Tab PO PRN (11:33)
[2022-05-21] MEDS: Rosuvastatin 10 MG Tab PO SCH (20:45)
[2022-05-22 05:02] LABS: ESTIMATED GFR 87 mL/min (>60)
[2022-05-22] MEDS: Albuterol/Ipratropium 3.0-0.5 MG/3 ML Neb Soln INH SCH ×4 (07:01→20:21)
[2022-05-22] MEDS: Budesonide 0.5 MG/2 ML Neb Susp INH SCH ×2 (07:01→20:21)
[2022-05-22] MEDS: Tiotropium Bromide 4 GM Inhalation Spray (2.5mcg/1 dose; 10 doses) INH SCH (07:01)
[2022-05-22] MEDS: Arformoterol 15 MCG/2 ML Neb Soln INH SCH ×2 (07:01→20:13)
[2022-05-22] MEDS: Pantoprazole 40 MG Tab.CR PO SCH (07:41)
[2022-05-22] MEDS: Enoxaparin 30 MG/0.3 ML Syringe SUBCUT SCH (08:27)
[2022-05-22] MEDS: Docusate Sodium 100 MG Cap PO SCH ×2 (08:27→20:14)
[2022-05-22] MEDS: Aspirin 325 MG Tab.EC PO SCH (08:27)
[2022-05-22] MEDS: Bisacodyl 5 MG Tab PO SCH ×2 (08:27→20:15)
[2022-05-22] MEDS: Hydrocortisone 1% Crm 30 GM Tube TOP PRN ×2 (08:30→20:30)
[2022-05-22] MEDS ORDERED: Sodium Chloride 0.9% 100 ML IV ONE (10:15)
[2022-05-22] MEDS ORDERED: Sodium Chloride 0.9% 10 ML Syringe FLUSH PRN (10:15)
[2022-05-22] MEDS ORDERED: Iopamidol 755 Mg/ML 100 ML Bottle IV SCH (10:15)
[2022-05-22] MEDS ORDERED: Dextrose 5%-Lactated Ringers 1,000 ML IV SCH (13:30)
[2022-05-22] MEDS: Rosuvastatin 10 MG Tab PO SCH ×2 (20:14→21:03)
[2022-05-23 05:50] LABS: ESTIMATED GFR 84 mL/min (>60)
[2022-05-23] MEDS ORDERED: Bupivacaine 0.5%/EPINEPHrine 1:200,000 50 ML MDV ONE (06:55)
[2022-05-23] MEDS: HYDROmorphone 2 MG Tab PO PRN ×2 (07:29→13:29)
[2022-05-23] MEDS: Pantoprazole 40 MG Tab.CR PO SCH (07:31)
[2022-05-23] MEDS: Budesonide 0.5 MG/2 ML Neb Susp INH SCH ×2 (07:38→20:16)
[2022-05-23] MEDS: Arformoterol 15 MCG/2 ML Neb Soln INH SCH ×2 (07:38→20:17)
[2022-05-23] MEDS: Albuterol/Ipratropium 3.0-0.5 MG/3 ML Neb Soln INH SCH ×4 (07:38→20:17)
[2022-05-23] MEDS: Tiotropium Bromide 4 GM Inhalation Spray (2.5mcg/1 dose; 10 doses) INH SCH (07:38)
[2022-05-23] MEDS: Bisacodyl 5 MG Tab PO SCH ×2 (09:26→20:13)
[2022-05-23] MEDS: Docusate Sodium 100 MG Cap PO SCH ×2 (09:26→20:13)
[2022-05-23] MEDS: Aspirin 325 MG Tab.EC PO SCH (09:27)
[2022-05-23] MEDS ORDERED: Meropenem 500 MG in Sodium Chloride 0.9% 50 ML IV ONE (10:30)
[2022-05-23] MEDS: Enoxaparin 30 MG/0.3 ML Syringe SUBCUT SCH (13:29)
[2022-05-23] MEDS: Rosuvastatin 10 MG Tab PO SCH (20:12)
[2022-05-24 05:53] LABS: ESTIMATED GFR 84 mL/min (>60)
[2022-05-24] MEDS: Arformoterol 15 MCG/2 ML Neb Soln INH SCH ×2 (07:00→20:13)
[2022-05-24] MEDS: Budesonide 0.5 MG/2 ML Neb Susp INH SCH ×2 (07:00→20:12)
[2022-05-24] MEDS: Tiotropium Bromide 4 GM Inhalation Spray (2.5mcg/1 dose; 10 doses) INH SCH (07:00)
[2022-05-24] MEDS: Albuterol/Ipratropium 3.0-0.5 MG/3 ML Neb Soln INH SCH ×4 (07:00→20:12)
[2022-05-24] MEDS: Bisacodyl 5 MG Tab PO SCH ×4 (08:30→20:18)
[2022-05-24] MEDS: Docusate Sodium 100 MG Cap PO SCH ×4 (08:30→20:17)
[2022-05-24] MEDS: Hydrocortisone 1% Crm 30 GM Tube TOP PRN (08:30)
[2022-05-24] MEDS: Aspirin 325 MG Tab.EC PO SCH (08:30)
[2022-05-24] MEDS: Pantoprazole 40 MG Tab.CR PO SCH (08:30)
[2022-05-24] MEDS: Enoxaparin 30 MG/0.3 ML Syringe SUBCUT SCH (13:15)
[2022-05-24] MEDS: Rosuvastatin 10 MG Tab PO SCH (20:16)
[2022-05-25 05:34] LABS: ESTIMATED GFR 84 mL/min (>60)
[2022-05-25] MEDS: Pantoprazole 40 MG Tab.CR PO SCH (07:22)
[2022-05-25] MEDS: Tiotropium Bromide 4 GM Inhalation Spray (2.5mcg/1 dose; 10 doses) INH SCH (07:29)
[2022-05-25] MEDS: Albuterol/Ipratropium 3.0-0.5 MG/3 ML Neb Soln INH SCH ×4 (07:29→20:46)
[2022-05-25] MEDS: Arformoterol 15 MCG/2 ML Neb Soln INH SCH ×2 (07:29→21:07)
[2022-05-25] MEDS: Budesonide 0.5 MG/2 ML Neb Susp INH SCH ×2 (07:29→20:46)
[2022-05-25] MEDS: Aspirin 325 MG Tab.EC PO SCH (08:37)
[2022-05-25] MEDS: Bisacodyl 5 MG Tab PO SCH (09:44)
[2022-05-25] MEDS: Docusate Sodium 100 MG Cap PO SCH ×2 (09:44→21:07)
[2022-05-25] MEDS: Enoxaparin 30 MG/0.3 ML Syringe SUBCUT SCH (13:09)
[2022-05-25] MEDS: Rosuvastatin 10 MG Tab PO SCH (21:07)
[2022-05-26 04:40] LABS: ESTIMATED GFR 74 mL/min (>60)
[2022-05-26] MEDS: Bisacodyl 5 MG Tab PO SCH ×3 (06:01→20:22)
[2022-05-26] MEDS: Pantoprazole 40 MG Tab.CR PO SCH (07:32)
[2022-05-26] MEDS: Tiotropium Bromide 4 GM Inhalation Spray (2.5mcg/1 dose; 10 doses) INH SCH (07:45)
[2022-05-26] MEDS: Albuterol/Ipratropium 3.0-0.5 MG/3 ML Neb Soln INH SCH ×4 (07:45→20:41)
[2022-05-26] MEDS: Arformoterol 15 MCG/2 ML Neb Soln INH SCH ×2 (07:45→20:23)
[2022-05-26] MEDS: Budesonide 0.5 MG/2 ML Neb Susp INH SCH ×2 (07:45→20:41)
[2022-05-26] MEDS: Aspirin 325 MG Tab.EC PO SCH (08:55)
[2022-05-26] MEDS: Docusate Sodium 100 MG Cap PO SCH ×2 (08:55→20:22)
[2022-05-26] MEDS: guaiFENesin 600 MG Tab.ER PO PRN (17:42)
[2022-05-26] MEDS: Dextrose 5%-Lactated Ringers 1,000 ML IV SCH (20:14)
[2022-05-26] MEDS: Rosuvastatin 10 MG Tab PO SCH (20:23)
[2022-05-27] MEDS: Dextrose 5%-Lactated Ringers 1,000 ML IV SCH ×2 (05:28→17:15)
[2022-05-27] MEDS: Tiotropium Bromide 4 GM Inhalation Spray (2.5mcg/1 dose; 10 doses) INH SCH (07:04)
[2022-05-27] MEDS: Arformoterol 15 MCG/2 ML Neb Soln INH SCH ×2 (07:04→20:35)
[2022-05-27] MEDS: Albuterol/Ipratropium 3.0-0.5 MG/3 ML Neb Soln INH SCH ×4 (07:04→20:17)
[2022-05-27] MEDS: Budesonide 0.5 MG/2 ML Neb Susp INH SCH ×2 (07:04→20:17)
[2022-05-27] MEDS: Pantoprazole 40 MG Tab.CR PO SCH (07:26)
[2022-05-27] MEDS ORDERED: Neostigmine Methylsulfate 1 MG/ML 5 ML Syringe ONE (08:26)
[2022-05-27] MEDS ORDERED: Succinylcholine 200 MG/10 ML MDV ONE (08:26)
[2022-05-27] MEDS ORDERED: Ondansetron 4 MG/2 ML SDV ONE (08:26)
[2022-05-27] MEDS ORDERED: Rocuronium 50 MG/5 ML Vial ONE (08:26)
[2022-05-27] MEDS ORDERED: Glycopyrrolate 0.2 MG/ML 5 ML MDV ONE (08:26)
[2022-05-27] MEDS ORDERED: Dexamethasone 4 MG/ML SDV ONE (08:26)
[2022-05-27] MEDS ORDERED: fentaNYL 250 MCG/5 ML SDV ONE (08:26)
[2022-05-27] MEDS ORDERED: Propofol 200 MG/20 ML SDV ONE (08:26)
[2022-05-27] MEDS ORDERED: Meropenem 500 MG in Sodium Chloride 0.9% 50 ML IV ONE (09:00)
[2022-05-27] MEDS ORDERED: Lidocaine 2% Viscous Solution 15 ML UD ONE (09:19)
[2022-05-27] MEDS ORDERED: Lidocaine 4% Top Soln 50 ML Bottle ONE (09:20)
[2022-05-27] MEDS: Aspirin 325 MG Tab.EC PO SCH (09:24)
[2022-05-27] MEDS: Docusate Sodium 100 MG Cap PO SCH (09:24)
[2022-05-27] MEDS: Bisacodyl 5 MG Tab PO SCH (09:24)
[2022-05-27] MEDS ORDERED: Lidocaine 1% with EPINEPHrine 1:100,000 50 ML MDV ONE (09:29)
[2022-05-27] MEDS ORDERED: Bupivacaine 0.5% 50 ML MDV ONE (09:29)
[2022-05-27] MEDS ORDERED: Sodium Chloride 0.9% 500 ML ONE (10:48)
[2022-05-27] MEDS ORDERED: Heparin Sodium 5,000 Units/ML Vial ONE (10:48)
[2022-05-27] MEDS ORDERED: Lidocaine 1% 2 ML ONE (11:59)
[2022-05-27] MEDS ORDERED: Meropenem 500 MG SDV ONE ×2 (13:00→13:55)
[2022-05-27] MEDS ORDERED: Linezolid 600 MG/300 ML Premix Bag IRR ONE ×2 (13:34)
[2022-05-27] MEDS ORDERED: fentaNYL 100 MCG/2 ML SDV ONE (14:11)
[2022-05-27] MEDS ORDERED: diphenhydrAMINE 25 MG Cap PO PRN (14:23)
[2022-05-27] MEDS ORDERED: Naloxone 0.4 MG/ML SDV IVPUSH PRN (14:23)
[2022-05-27] MEDS ORDERED: Ondansetron 4 MG/2 ML SDV IVPUSH PRN (14:23)
[2022-05-27] MEDS ORDERED: diphenhydrAMINE 50 MG/ML SDV IVPUSH PRN (14:23)
[2022-05-27] MEDS: HYDROmorphone/Normal Saline 6 MG/30 ML PCA Vial IV PRN (14:34)
[2022-05-27] MEDS ORDERED: Naloxone 0.4 MG/ML SDV IV PRN (15:00)
[2022-05-27] MEDS ORDERED: Cyclobenzaprine 10 MG Tab PO PRN (16:38)
[2022-05-27] MEDS ORDERED: hydrOXYzine HCL 100 MG/2 ML SDV IM PRN (17:00)
[2022-05-27] MEDS: Acetaminophen 325 MG Tab PO SCH (17:09)
[2022-05-27] MEDS: Pantoprazole 40 MG Vial IVPUSH SCH (17:09)
[2022-05-27] MEDS: ceFAZolin 2 GM in Sodium Chloride 0.9% 50 ML IV SCH (17:13)
[2022-05-27] MEDS: Tamsulosin 0.4 MG Cap.ER PO SCH (20:35)
[2022-05-28] MEDS: Acetaminophen 325 MG Tab PO SCH ×6 (00:32→18:50)
[2022-05-28] MEDS: ceFAZolin 2 GM in Sodium Chloride 0.9% 50 ML IV SCH ×3 (01:29→18:15)
[2022-05-28] MEDS: Dextrose 5%-Lactated Ringers 1,000 ML IV SCH ×2 (02:17→11:41)
[2022-05-28 05:00] LABS: ESTIMATED GFR 87 mL/min (>60)
[2022-05-28] MEDS: Albuterol/Ipratropium 3.0-0.5 MG/3 ML Neb Soln INH SCH ×4 (07:43→20:27)
[2022-05-28] MEDS: Budesonide 0.5 MG/2 ML Neb Susp INH SCH ×2 (07:43→20:27)
[2022-05-28] MEDS: Arformoterol 15 MCG/2 ML Neb Soln INH SCH ×2 (07:43→20:29)
[2022-05-28] MEDS: Tiotropium Bromide 4 GM Inhalation Spray (2.5mcg/1 dose; 10 doses) INH SCH (07:43)
[2022-05-28] MEDS: Magnesium Sulfate/Water 2 GM/50 ML BAG IV SCH ×3 (08:21→20:31)
[2022-05-28] MEDS: Aspirin 325 MG Tab.EC PO SCH (09:22)
[2022-05-28] MEDS: Bisacodyl 5 MG Tab PO SCH ×2 (09:23→20:35)
[2022-05-28] MEDS ORDERED: Heparin Sodium 5,000 UNITS in Sodium Chloride 0.9% 500 ML IV SCH (12:00)
[2022-05-28] MEDS: HYDROmorphone/Normal Saline 6 MG/30 ML PCA Vial IV PRN (13:40)
[2022-05-28] MEDS: hydrOXYzine HCl 25 MG Tab PO PRN (15:29)
[2022-05-28] MEDS: Pantoprazole 40 MG Vial IVPUSH SCH (18:11)
[2022-05-28] MEDS: Tamsulosin 0.4 MG Cap.ER PO SCH (20:35)
[2022-05-28] MEDS ORDERED: Lactated Ringers 1,000 ML IV ONE (21:23)
[2022-05-29] MEDS: Acetaminophen 325 MG Tab PO SCH ×2 (00:02→05:17)
[2022-05-29] MEDS: ceFAZolin 2 GM in Sodium Chloride 0.9% 50 ML IV SCH ×3 (02:08→18:17)
[2022-05-29] MEDS: Magnesium Sulfate/Water 2 GM/50 ML BAG IV SCH ×4 (03:00→20:12)
[2022-05-29 03:43] LABS: ESTIMATED GFR 87 mL/min (>60)
[2022-05-29] MEDS ORDERED: Furosemide 20 MG/2 ML VIAL IVPUSH ONE ×2 (04:03→12:00)
[2022-05-29] MEDS: Arformoterol 15 MCG/2 ML Neb Soln INH SCH ×2 (07:21→20:34)
[2022-05-29] MEDS: Albuterol/Ipratropium 3.0-0.5 MG/3 ML Neb Soln INH SCH ×4 (07:21→20:11)
[2022-05-29] MEDS: Budesonide 0.5 MG/2 ML Neb Susp INH SCH ×2 (07:21→20:11)
[2022-05-29] MEDS: Tiotropium Bromide 4 GM Inhalation Spray (2.5mcg/1 dose; 10 doses) INH SCH (07:21)
[2022-05-29] MEDS: Acetaminophen 1,000 MG in Premix Bag 1 BAG IV SCH ×2 (08:28→15:45)
[2022-05-29] MEDS: Aspirin 325 MG Tab.EC PO SCH (08:40)
[2022-05-29] MEDS: Bisacodyl 5 MG Tab PO SCH ×2 (08:40→20:11)
[2022-05-29] MEDS: Acetylcysteine 20% 200 MG/ML 4 ML Nebulizer Soln SDV NEB SCH ×3 (10:50→20:12)
[2022-05-29] MEDS: Potassium Chloride 10 MEQ in Premix Bag 1 BAG IV SCH ×2 (13:02→16:15)
[2022-05-29] MEDS: Dextrose 5%-Lactated Ringers 1,000 ML IV SCH (17:28)
[2022-05-29] MEDS: Pantoprazole 40 MG Vial IVPUSH SCH (18:19)
[2022-05-29] MEDS: Tamsulosin 0.4 MG Cap.ER PO SCH (20:11)
[2022-05-30] MEDS: Acetaminophen 1,000 MG in Premix Bag 1 BAG IV SCH ×3 (00:37→15:34)
[2022-05-30] MEDS: ceFAZolin 2 GM in Sodium Chloride 0.9% 50 ML IV SCH ×3 (03:01→17:24)
[2022-05-30] MEDS: Magnesium Sulfate/Water 2 GM/50 ML BAG IV SCH (03:39)
[2022-05-30 05:04] LABS: ESTIMATED GFR 87 mL/min (>60)
[2022-05-30] MEDS: Dextrose 5%-Lactated Ringers 1,000 ML IV SCH ×2 (05:05→15:31)
[2022-05-30] MEDS ORDERED: Furosemide 20 MG/2 ML VIAL IVPUSH ONE ×2 (06:39→14:00)
[2022-05-30] MEDS ORDERED: Furosemide 20 MG/2 ML VIAL ONE (06:40)
[2022-05-30] MEDS: Arformoterol 15 MCG/2 ML Neb Soln INH SCH ×2 (07:03→22:33)
[2022-05-30] MEDS: Budesonide 0.5 MG/2 ML Neb Susp INH SCH ×2 (07:03→22:30)
[2022-05-30] MEDS: Acetylcysteine 20% 200 MG/ML 4 ML Nebulizer Soln SDV NEB SCH ×4 (07:03→22:30)
[2022-05-30] MEDS: Albuterol/Ipratropium 3.0-0.5 MG/3 ML Neb Soln INH SCH ×4 (07:03→22:30)
[2022-05-30] MEDS ORDERED: Potassium Phosphates 3 mMole/ML 15 ML SDV IV ONE (07:15)
[2022-05-30] MEDS: Tiotropium Bromide 4 GM Inhalation Spray (2.5mcg/1 dose; 10 doses) INH SCH (08:12)
[2022-05-30] MEDS: Potassium Phos in 0.9 % NaCl 15 MMOL in Premix Bag 1 BAG IV SCH ×4 (08:16→11:43)
[2022-05-30] MEDS: Aspirin 325 MG Tab.EC PO SCH (09:11)
[2022-05-30] MEDS: Bisacodyl 5 MG Tab PO SCH ×2 (09:11→22:33)
[2022-05-30] MEDS: HYDROmorphone/Normal Saline 6 MG/30 ML PCA Vial IV PRN (10:36)
[2022-05-30] MEDS ORDERED: Heparin Sodium 5,000 UNITS in Sodium Chloride 0.9% 500 ML IV SCH (12:00)
[2022-05-30] MEDS ORDERED: Potassium Chloride 10 MEQ in Premix Bag 1 BAG IV SCH (14:00)
[2022-05-30] MEDS ORDERED: Potassium Chloride Riders 40 MEQ in Premix Bag 1 BAG IV ONE (14:00)
[2022-05-30] MEDS: Pantoprazole 40 MG Vial IVPUSH SCH (17:24)
[2022-05-30] MEDS: Tamsulosin 0.4 MG Cap.ER PO SCH (22:33)
[2022-05-31] MEDS: Acetaminophen 1,000 MG in Premix Bag 1 BAG IV SCH ×3 (00:07→15:35)
[2022-05-31] MEDS: ceFAZolin 2 GM in Sodium Chloride 0.9% 50 ML IV SCH ×3 (03:16→17:29)
[2022-05-31] MEDS: Dextrose 5%-Lactated Ringers 1,000 ML IV SCH (03:19)
[2022-05-31 06:02] LABS: ESTIMATED GFR 87 mL/min (>60)
[2022-05-31] MEDS ORDERED: Furosemide 40 MG/4 ML VIAL IVPUSH ONE (07:30)
[2022-05-31] MEDS: Acetylcysteine 20% 200 MG/ML 4 ML Nebulizer Soln SDV NEB SCH ×4 (07:45→21:31)
[2022-05-31] MEDS: Budesonide 0.5 MG/2 ML Neb Susp INH SCH ×2 (07:45→21:33)
[2022-05-31] MEDS: Albuterol/Ipratropium 3.0-0.5 MG/3 ML Neb Soln INH SCH ×4 (07:45→21:31)
[2022-05-31] MEDS: Tiotropium Bromide 4 GM Inhalation Spray (2.5mcg/1 dose; 10 doses) INH SCH (07:45)
[2022-05-31] MEDS: Arformoterol 15 MCG/2 ML Neb Soln INH SCH ×2 (07:45→21:31)
[2022-05-31] MEDS: Bisacodyl 5 MG Tab PO SCH ×2 (08:15→21:31)
[2022-05-31] MEDS: Aspirin 325 MG Tab.EC PO SCH (08:15)
[2022-05-31] MEDS ORDERED: Dextrose 5%-Lactated Ringers 1,000 ML IV SCH (09:30)
[2022-05-31] MEDS ORDERED: Furosemide 20 MG/2 ML VIAL IVPUSH ONE (14:00)
[2022-05-31] MEDS: HYDROmorphone 2 MG Tab PO PRN ×2 (14:09→17:43)
[2022-05-31] MEDS ORDERED: Pantoprazole 40 MG Tab.CR PO SCH (16:30)
[2022-05-31] MEDS: Tamsulosin 0.4 MG Cap.ER PO SCH (21:31)
[2022-06-01] MEDS: Acetaminophen 1,000 MG in Premix Bag 1 BAG IV SCH ×3 (00:20→16:52)
[2022-06-01] MEDS: HYDROmorphone 2 MG Tab PO PRN ×3 (00:29→20:53)
[2022-06-01] MEDS: ceFAZolin 2 GM in Sodium Chloride 0.9% 50 ML IV SCH ×3 (02:58→17:30)
[2022-06-01 05:10] LABS: ESTIMATED GFR 87 mL/min (>60)
[2022-06-01] MEDS: Tiotropium Bromide 4 GM Inhalation Spray (2.5mcg/1 dose; 10 doses) INH SCH (07:00)
[2022-06-01] MEDS: Budesonide 0.5 MG/2 ML Neb Susp INH SCH ×2 (07:00→20:52)
[2022-06-01] MEDS: Arformoterol 15 MCG/2 ML Neb Soln INH SCH ×2 (07:00→20:52)
[2022-06-01] MEDS: Albuterol/Ipratropium 3.0-0.5 MG/3 ML Neb Soln INH SCH ×2 (07:00→10:25)
[2022-06-01] MEDS: Acetylcysteine 20% 200 MG/ML 4 ML Nebulizer Soln SDV NEB SCH ×4 (07:00→20:52)
[2022-06-01] MEDS: Pantoprazole 40 MG Tab.CR PO SCH (08:30)
[2022-06-01] MEDS ORDERED: Potassium Chloride Riders 40 MEQ in Premix Bag 1 BAG IV ONE (09:00)
[2022-06-01] MEDS: Docusate Sodium 100 MG Cap PO SCH ×2 (09:28→20:53)
[2022-06-01] MEDS: Bisacodyl 5 MG Tab PO SCH ×2 (09:29→20:53)
[2022-06-01] MEDS: Aspirin 325 MG Tab.EC PO SCH (09:30)
[2022-06-01] MEDS: Enoxaparin 40 MG/0.4 ML Syringe SUBCUT SCH (09:36)
[2022-06-01] MEDS: Furosemide 20 MG/2 ML VIAL IV SCH ×2 (09:52→14:06)
[2022-06-01] MEDS ORDERED: Sodium Chloride 0.9% 500 ML IV ONE (10:50)
[2022-06-01] MEDS ORDERED: Heparin Sodium 5,000 UNITS in Sodium Chloride 0.9% 500 ML IV SCH (12:00)
[2022-06-01] MEDS: Sotalol 80 MG Tab PO SCH ×2 (12:23→20:52)
[2022-06-01] MEDS: hydrOXYzine HCl 25 MG Tab PO PRN (16:53)
[2022-06-01] MEDS: Tamsulosin 0.4 MG Cap.ER PO SCH (20:53)
[2022-06-02] MEDS: Acetaminophen 1,000 MG in Premix Bag 1 BAG IV SCH (01:08)
[2022-06-02] MEDS: ceFAZolin 2 GM in Sodium Chloride 0.9% 50 ML IV SCH (01:22)
[2022-06-02] MEDS: HYDROmorphone 2 MG Tab PO PRN ×2 (01:28→20:54)
[2022-06-02 04:53] LABS: ESTIMATED GFR 84 mL/min (>60)
[2022-06-02] MEDS: Arformoterol 15 MCG/2 ML Neb Soln INH SCH ×2 (07:11→20:52)
[2022-06-02] MEDS: Budesonide 0.5 MG/2 ML Neb Susp INH SCH ×2 (07:12→20:55)
[2022-06-02] MEDS: Tiotropium Bromide 4 GM Inhalation Spray (2.5mcg/1 dose; 10 doses) INH SCH (07:12)
[2022-06-02] MEDS: Acetylcysteine 20% 200 MG/ML 4 ML Nebulizer Soln SDV NEB SCH ×4 (07:12→20:55)
[2022-06-02] MEDS ORDERED: Furosemide 20 MG/2 ML VIAL IV ONE ×2 (07:30→13:30)
[2022-06-02] MEDS: Pantoprazole 40 MG Tab.CR PO SCH (08:11)
[2022-06-02] MEDS: Acetaminophen 500 MG Tab PO SCH ×4 (08:12→21:39)
[2022-06-02] MEDS ORDERED: Furosemide 20 MG/2 ML VIAL ONE (08:18)
[2022-06-02] MEDS: Sotalol 80 MG Tab PO SCH ×2 (08:33→20:54)
[2022-06-02] MEDS: Aspirin 325 MG Tab.EC PO SCH (08:34)
[2022-06-02] MEDS: Enoxaparin 40 MG/0.4 ML Syringe SUBCUT SCH (08:34)
[2022-06-02] MEDS: Bisacodyl 5 MG Tab PO SCH ×2 (08:34→20:53)
[2022-06-02] MEDS: Docusate Sodium 100 MG Cap PO SCH ×2 (08:34→20:54)
[2022-06-02] MEDS: Potassium Phosphates 15 MMOLE in Sodium Chloride 0.9% 100 ML IV SCH ×2 (10:20→13:37)
[2022-06-02] MEDS: Tamsulosin 0.4 MG Cap.ER PO SCH (20:55)
[2022-06-03 05:26] LABS: ESTIMATED GFR 87 mL/min (>60)
[2022-06-03] MEDS: Acetaminophen 500 MG Tab PO SCH (06:30)
[2022-06-03] MEDS: Budesonide 0.5 MG/2 ML Neb Susp INH SCH ×2 (07:07→21:20)
[2022-06-03] MEDS: Tiotropium Bromide 4 GM Inhalation Spray (2.5mcg/1 dose; 10 doses) INH SCH (07:07)
[2022-06-03] MEDS: Acetylcysteine 20% 200 MG/ML 4 ML Nebulizer Soln SDV NEB SCH ×4 (07:07→21:20)
[2022-06-03] MEDS: Arformoterol 15 MCG/2 ML Neb Soln INH SCH ×2 (07:07→21:04)
[2022-06-03] MEDS ORDERED: Furosemide 20 MG/2 ML VIAL IVPUSH ONE (07:15)
[2022-06-03] MEDS: Aspirin 325 MG Tab.EC PO SCH (08:06)
[2022-06-03] MEDS: Pantoprazole 40 MG Tab.CR PO SCH (08:07)
[2022-06-03] MEDS: Sotalol 80 MG Tab PO SCH ×2 (08:07→21:20)
[2022-06-03] MEDS: Docusate Sodium 100 MG Cap PO SCH ×2 (08:08→21:04)
[2022-06-03] MEDS: Enoxaparin 40 MG/0.4 ML Syringe SUBCUT SCH (08:08)
[2022-06-03] MEDS: Bisacodyl 5 MG Tab PO SCH ×2 (08:08→21:04)
[2022-06-03] MEDS: Acetaminophen Soln 650 MG/20.3 ML UD Cup PO SCH ×3 (08:14→23:42)
[2022-06-03] MEDS: guaiFENesin 600 MG Tab.ER PO PRN (09:42)
[2022-06-03] MEDS: Magnesium Sulfate/Water 2 GM/50 ML BAG IV SCH ×3 (09:43→21:04)
[2022-06-03] MEDS ORDERED: guaiFENesin 100 MG/5 ML Soln 10 ML UD Cup PO PRN (12:53)
[2022-06-03] MEDS: HYDROmorphone 2 MG Tab PO PRN (19:55)
[2022-06-03] MEDS: Tamsulosin 0.4 MG Cap.ER PO SCH (21:04)
[2022-06-04] MEDS: Magnesium Sulfate/Water 2 GM/50 ML BAG IV SCH ×4 (03:03→21:20)
[2022-06-04 05:27] LABS: ESTIMATED GFR 87 mL/min (>60)
[2022-06-04] MEDS: Arformoterol 15 MCG/2 ML Neb Soln INH SCH ×2 (07:12→20:29)
[2022-06-04] MEDS: Tiotropium Bromide 4 GM Inhalation Spray (2.5mcg/1 dose; 10 doses) INH SCH (07:12)
[2022-06-04] MEDS: Budesonide 0.5 MG/2 ML Neb Susp INH SCH ×2 (07:12→20:37)
[2022-06-04] MEDS: Acetylcysteine 20% 200 MG/ML 4 ML Nebulizer Soln SDV NEB SCH ×4 (07:12→20:36)
[2022-06-04] MEDS: Acetaminophen Soln 650 MG/20.3 ML UD Cup PO SCH ×4 (07:38→23:16)
[2022-06-04] MEDS: Pantoprazole 40 MG Tab.CR PO SCH (07:38)
[2022-06-04] MEDS: Sotalol 80 MG Tab PO SCH ×2 (08:25→20:28)
[2022-06-04] MEDS: Aspirin 325 MG Tab.EC PO SCH (08:25)
[2022-06-04] MEDS: Bisacodyl 5 MG Tab PO SCH ×2 (08:25→20:29)
[2022-06-04] MEDS: Docusate Sodium 100 MG Cap PO SCH ×2 (08:26→20:29)
[2022-06-04] MEDS: Enoxaparin 40 MG/0.4 ML Syringe SUBCUT SCH (08:26)
[2022-06-04] MEDS: guaiFENesin/Dextromethorphan 100-10 MG/5 ML Soln 10 ML Cup PO SCH ×3 (08:28→20:30)
[2022-06-04] MEDS ORDERED: Furosemide 20 MG/2 ML VIAL IVPUSH ONE (09:00)
[2022-06-04] MEDS: Albuterol 0.083% 2.5 MG/3 ML Neb Soln NEB SCH ×3 (10:51→20:36)
[2022-06-04] MEDS: Tamsulosin 0.4 MG Cap.ER PO SCH (20:30)
[2022-06-04] MEDS: HYDROmorphone 2 MG Tab PO PRN (23:12)
[2022-06-05] MEDS: Magnesium Sulfate/Water 2 GM/50 ML BAG IV SCH (04:14)
[2022-06-05 05:05] LABS: ESTIMATED GFR 84 mL/min (>60)
[2022-06-05] MEDS: Budesonide 0.5 MG/2 ML Neb Susp INH SCH ×2 (07:44→20:25)
[2022-06-05] MEDS: Arformoterol 15 MCG/2 ML Neb Soln INH SCH ×2 (07:44→20:15)
[2022-06-05] MEDS: Acetylcysteine 20% 200 MG/ML 4 ML Nebulizer Soln SDV NEB SCH ×4 (07:44→20:18)
[2022-06-05] MEDS: Albuterol 0.083% 2.5 MG/3 ML Neb Soln NEB SCH ×4 (07:44→20:19)
[2022-06-05] MEDS: Tiotropium Bromide 4 GM Inhalation Spray (2.5mcg/1 dose; 10 doses) INH SCH (07:44)
[2022-06-05] MEDS: Pantoprazole 40 MG Tab.CR PO SCH (08:30)
[2022-06-05] MEDS: Acetaminophen Soln 650 MG/20.3 ML UD Cup PO SCH ×3 (08:31→21:00)
[2022-06-05] MEDS: Sotalol 80 MG Tab PO SCH ×2 (08:34→20:15)
[2022-06-05] MEDS: Bisacodyl 5 MG Tab PO SCH ×2 (08:36→20:15)
[2022-06-05] MEDS: Aspirin 325 MG Tab.EC PO SCH (08:36)
[2022-06-05] MEDS: guaiFENesin/Dextromethorphan 100-10 MG/5 ML Soln 10 ML Cup PO SCH ×3 (08:36→20:14)
[2022-06-05] MEDS: Enoxaparin 40 MG/0.4 ML Syringe SUBCUT SCH (08:37)
[2022-06-05] MEDS: Docusate Sodium 100 MG Cap PO SCH ×2 (08:38→20:15)
[2022-06-05] MEDS: Albumin Human 25 GM in Premix Bag 1 BAG IV SCH (09:48)
[2022-06-05] MEDS: HYDROmorphone 2 MG Tab PO PRN ×2 (16:15→22:37)
[2022-06-05] MEDS: Tamsulosin 0.4 MG Cap.ER PO SCH (20:15)
[2022-06-05] MEDS: Zinc Oxide 20% Oint 56.7 GM Tube TOP PRN (22:36)
[2022-06-06 04:56] LABS: ESTIMATED GFR 87 mL/min (>60)
[2022-06-06] MEDS: Acetaminophen Soln 650 MG/20.3 ML UD Cup PO SCH ×3 (05:45→21:27)
[2022-06-06] MEDS: Albuterol 0.083% 2.5 MG/3 ML Neb Soln NEB SCH ×4 (06:59→20:41)
[2022-06-06] MEDS: Acetylcysteine 20% 200 MG/ML 4 ML Nebulizer Soln SDV NEB SCH ×4 (06:59→20:43)
[2022-06-06] MEDS: Arformoterol 15 MCG/2 ML Neb Soln INH SCH ×2 (06:59→20:43)
[2022-06-06] MEDS: Budesonide 0.5 MG/2 ML Neb Susp INH SCH ×2 (06:59→20:43)
[2022-06-06] MEDS: Tiotropium Bromide 4 GM Inhalation Spray (2.5mcg/1 dose; 10 doses) INH SCH (06:59)
[2022-06-06] MEDS: Pantoprazole 40 MG Tab.CR PO SCH (08:03)
[2022-06-06] MEDS: Docusate Sodium 100 MG Cap PO SCH ×2 (08:05→20:46)
[2022-06-06] MEDS: Bisacodyl 5 MG Tab PO SCH ×2 (08:05→20:46)
[2022-06-06] MEDS: Albumin Human 25 GM in Premix Bag 1 BAG IV SCH (08:05)
[2022-06-06] MEDS: guaiFENesin/Dextromethorphan 100-10 MG/5 ML Soln 10 ML Cup PO SCH ×3 (08:05→20:49)
[2022-06-06] MEDS: Aspirin 325 MG Tab.EC PO SCH (08:05)
[2022-06-06] MEDS: Enoxaparin 40 MG/0.4 ML Syringe SUBCUT SCH (08:23)
[2022-06-06] MEDS: Sotalol 80 MG Tab PO SCH ×2 (09:18→20:47)
[2022-06-06] MEDS: HYDROmorphone 2 MG Tab PO PRN ×2 (13:40→21:34)
[2022-06-06] MEDS: Tamsulosin 0.4 MG Cap.ER PO SCH (20:48)
[2022-06-06] MEDS: Zinc Oxide 20% Oint 56.7 GM Tube TOP PRN (20:53)
[2022-06-07] MEDS: Acetaminophen Soln 650 MG/20.3 ML UD Cup PO SCH ×4 (06:03→21:52)
[2022-06-07] MEDS: Arformoterol 15 MCG/2 ML Neb Soln INH SCH ×2 (07:17→21:11)
[2022-06-07] MEDS: Budesonide 0.5 MG/2 ML Neb Susp INH SCH ×2 (07:17→21:14)
[2022-06-07] MEDS: Albuterol 0.083% 2.5 MG/3 ML Neb Soln NEB SCH ×4 (07:17→21:14)
[2022-06-07] MEDS: Tiotropium Bromide 4 GM Inhalation Spray (2.5mcg/1 dose; 10 doses) INH SCH (07:17)
[2022-06-07] MEDS: Acetylcysteine 20% 200 MG/ML 4 ML Nebulizer Soln SDV NEB SCH ×4 (07:17→21:14)
[2022-06-07] MEDS: Pantoprazole 40 MG Tab.CR PO SCH (08:25)
[2022-06-07] MEDS: Sotalol 80 MG Tab PO SCH ×2 (08:25→21:12)
[2022-06-07] MEDS: Albumin Human 25 GM in Premix Bag 1 BAG IV SCH (08:25)
[2022-06-07] MEDS: Bisacodyl 5 MG Tab PO SCH ×2 (08:26→21:11)
[2022-06-07] MEDS: Enoxaparin 40 MG/0.4 ML Syringe SUBCUT SCH (08:26)
[2022-06-07] MEDS: Aspirin 325 MG Tab.EC PO SCH (08:26)
[2022-06-07] MEDS: Docusate Sodium 100 MG Cap PO SCH ×2 (08:26→21:11)
[2022-06-07] MEDS: guaiFENesin/Dextromethorphan 100-10 MG/5 ML Soln 10 ML Cup PO SCH ×3 (08:26→21:13)
[2022-06-07] MEDS: HYDROmorphone 2 MG Tab PO PRN (13:16)
[2022-06-07] MEDS: Tamsulosin 0.4 MG Cap.ER PO SCH (21:12)
[2022-06-08 05:39] LABS: ESTIMATED GFR 91 mL/min (>60)
[2022-06-08] MEDS: Albuterol 0.083% 2.5 MG/3 ML Neb Soln NEB SCH ×2 (07:19→20:29)
[2022-06-08] MEDS: Budesonide 0.5 MG/2 ML Neb Susp INH SCH ×2 (07:19→20:29)
[2022-06-08] MEDS: Acetylcysteine 20% 200 MG/ML 4 ML Nebulizer Soln SDV NEB SCH ×2 (07:19→20:30)
[2022-06-08] MEDS: Arformoterol 15 MCG/2 ML Neb Soln INH SCH ×2 (07:19→20:29)
[2022-06-08] MEDS: Tiotropium Bromide 4 GM Inhalation Spray (2.5mcg/1 dose; 10 doses) INH SCH (08:03)
[2022-06-08] MEDS: Acetaminophen Soln 650 MG/20.3 ML UD Cup PO SCH ×3 (08:23→21:00)
[2022-06-08] MEDS: Sotalol 80 MG Tab PO SCH ×2 (08:24→20:31)
[2022-06-08] MEDS: Pantoprazole 40 MG Tab.CR PO SCH (08:24)
[2022-06-08] MEDS: Bisacodyl 5 MG Tab PO SCH ×2 (08:25→20:30)
[2022-06-08] MEDS: Enoxaparin 40 MG/0.4 ML Syringe SUBCUT SCH (08:25)
[2022-06-08] MEDS: Docusate Sodium 100 MG Cap PO SCH ×2 (08:25→20:30)
[2022-06-08] MEDS: Aspirin 325 MG Tab.EC PO SCH (08:25)
[2022-06-08] MEDS: guaiFENesin/Dextromethorphan 100-10 MG/5 ML Soln 10 ML Cup PO SCH ×3 (08:26→20:37)
[2022-06-08] MEDS ORDERED: Furosemide 20 MG/2 ML VIAL IV ONE (09:00)
[2022-06-08] MEDS: HYDROmorphone 2 MG Tab PO PRN (13:22)
[2022-06-08] MEDS: Tamsulosin 0.4 MG Cap.ER PO SCH (20:30)
[2022-06-09] MEDS: Acetaminophen Soln 650 MG/20.3 ML UD Cup PO SCH ×4 (05:10→21:41)
[2022-06-09 05:14] LABS: ESTIMATED GFR 87 mL/min (>60)
[2022-06-09] MEDS: Tiotropium Bromide 4 GM Inhalation Spray (2.5mcg/1 dose; 10 doses) INH SCH (07:21)
[2022-06-09] MEDS: Arformoterol 15 MCG/2 ML Neb Soln INH SCH ×3 (07:21→20:44)
[2022-06-09] MEDS: Acetylcysteine 20% 200 MG/ML 4 ML Nebulizer Soln SDV NEB SCH ×3 (07:21→20:44)
[2022-06-09] MEDS: Albuterol 0.083% 2.5 MG/3 ML Neb Soln NEB SCH ×3 (07:21→20:45)
[2022-06-09] MEDS: Budesonide 0.5 MG/2 ML Neb Susp INH SCH ×3 (07:21→20:45)
[2022-06-09] MEDS: Pantoprazole 40 MG Tab.CR PO SCH (08:23)
[2022-06-09] MEDS: Bisacodyl 5 MG Tab PO SCH ×2 (08:27→20:44)
[2022-06-09] MEDS: Sotalol 80 MG Tab PO SCH ×2 (08:27→20:44)
[2022-06-09] MEDS: Docusate Sodium 100 MG Cap PO SCH ×2 (08:28→20:44)
[2022-06-09] MEDS: guaiFENesin/Dextromethorphan 100-10 MG/5 ML Soln 10 ML Cup PO SCH ×3 (08:28→20:45)
[2022-06-09] MEDS: Enoxaparin 40 MG/0.4 ML Syringe SUBCUT SCH (08:28)
[2022-06-09] MEDS: Aspirin 325 MG Tab.EC PO SCH (08:28)
[2022-06-09] MEDS ORDERED: hydrOXYzine HCl 50 MG/ML SDV IM PRN (08:43)
[2022-06-09] MEDS ORDERED: Furosemide 20 MG/2 ML VIAL IVPUSH ONE (10:00)
[2022-06-09] MEDS: Tamsulosin 0.4 MG Cap.ER PO SCH (20:44)
[2022-06-10] MEDS: Acetaminophen Soln 650 MG/20.3 ML UD Cup PO SCH (05:30)
[2022-06-10] MEDS ORDERED: Albuterol/Ipratropium 3.0-0.5 MG/3 ML Neb Soln INH PRN (06:59)
[2022-06-10] MEDS ORDERED: Ondansetron 4 MG/2 ML SDV IVPUSH PRN (07:00)
[2022-06-10] MEDS: Arformoterol 15 MCG/2 ML Neb Soln INH SCH (07:08)
[2022-06-10] MEDS: Acetylcysteine 20% 200 MG/ML 4 ML Nebulizer Soln SDV NEB SCH (07:08)
[2022-06-10] MEDS: Albuterol 0.083% 2.5 MG/3 ML Neb Soln NEB SCH (07:08)
[2022-06-10] MEDS: Budesonide 0.5 MG/2 ML Neb Susp INH SCH (07:08)
[2022-06-10] MEDS: Tiotropium Bromide 4 GM Inhalation Spray (2.5mcg/1 dose; 10 doses) INH SCH (07:09)
[2022-06-10] MEDS: Pantoprazole 40 MG Tab.CR PO SCH (08:37)
[2022-06-10] MEDS: Aspirin 325 MG Tab.EC PO SCH (08:37)
[2022-06-10] MEDS: Sotalol 80 MG Tab PO SCH (08:37)
[2022-06-10] MEDS: Bisacodyl 5 MG Tab PO SCH (08:37)
[2022-06-10] MEDS: Docusate Sodium 100 MG Cap PO SCH (08:38)
[2022-06-10] MEDS: guaiFENesin/Dextromethorphan 100-10 MG/5 ML Soln 10 ML Cup PO SCH (08:38)
[2022-06-10] MEDS: Enoxaparin 40 MG/0.4 ML Syringe SUBCUT SCH (08:38)
[2022-06-10] MEDS ORDERED: Budesonide 0.5 MG/2 ML Neb Susp INH SCH (21:00)
[2022-06-11] MEDS ORDERED: Tiotropium Bromide 4 GM Inhalation Spray (2.5mcg/1 dose; 10 doses) INH SCH (07:00)
[2022-06-11] MEDS ORDERED: Aspirin 325 MG Tab.EC PO SCH (09:00)
== END 2022-06-10 14:36 | DRG 163 ==
LOC: JP.ED 11:08 → JP.MS 15:00 → JP.ICU 05-23 00:08
PROVIDERS: ADMIT Surgery; ATTEND Surgery
PROC: 0W9930Z Drainage of Right Pleural Cavity with Drainage Device, Percutaneous Approach (ICD-10-PCS; principal; 2022-05-10)
PROC: 0WP930Z Removal of Drainage Device from Right Pleural Cavity, Percutaneous Approach (ICD-10-PCS; 2022-05-13)
PROC: 0W9930Z Drainage of Right Pleural Cavity with Drainage Device, Percutaneous Approach (ICD-10-PCS; 2022-05-13)
PROC: 0BBD0ZZ Excision of Right Middle Lung Lobe, Open Approach (ICD-10-PCS; 2022-05-27)
PROC: 0BTC0ZZ Resection of Right Upper Lung Lobe, Open Approach (ICD-10-PCS; 2022-05-27)
PROC: 0BTF0ZZ Resection of Right Lower Lung Lobe, Open Approach (ICD-10-PCS; 2022-05-27)
PROC: 0BTD0ZZ Resection of Right Middle Lung Lobe, Open Approach (ICD-10-PCS; 2022-05-27)
PROC: 0B9F8ZZ Drainage of Right Lower Lung Lobe, Via Natural or Artificial Opening Endoscopic (ICD-10-PCS; 2022-05-27)
PROC: 0B9N0ZZ Drainage of Right Pleura, Open Approach (ICD-10-PCS; 2022-05-27)
PROC: 30233N1 Transfusion of Nonautologous Red Blood Cells into Peripheral Vein, Percutaneous Approach (ICD-10-PCS; 2022-06-02)
DX: J93.83 Other pneumothorax (principal); J95.822 Acute and chronic postprocedural respiratory failure; J96.21 Acute and chronic respiratory failure with hypoxia; J90 Pleural effusion, not elsewhere classified; I97.191 Other postprocedural cardiac functional disturbances following other surgery; R91.8 Other nonspecific abnormal finding of lung field; Z20.822 Contact with and (suspected) exposure to COVID-19; T81.82XA Emphysema (subcutaneous) resulting from a procedure, initial encounter; J95.812 Postprocedural air leak; L89.899 Pressure ulcer of other site, unspecified stage; J44.9 Chronic obstructive pulmonary disease, unspecified; I48.0 Paroxysmal atrial fibrillation; I25.10 Atherosclerotic heart disease of native coronary artery without angina pectoris; E78.00 Pure hypercholesterolemia, unspecified; Z88.5 Allergy status to narcotic agent; Z79.82 Long term (current) use of aspirin; Z79.899 Other long term (current) drug therapy; Z79.51 Long term (current) use of inhaled steroids; I25.2 Old myocardial infarction; Z95.1 Presence of aortocoronary bypass graft; Z90.49 Acquired absence of other specified parts of digestive tract; Z87.891 Personal history of nicotine dependence; Z99.81 Dependence on supplemental oxygen
CPT/HCPCS: 0241U; 36415; 36430; 36569; 36600; 71045; 71046; 71275; 78582; 80048; 80053; 82803; 83735; 83880; 84100; 84484; 85025; 85027; 86850; 86900; 86901; 86920; 86922; 87015; 87070; 87077; 87102; 87116; 87186; 87205; 87206; 87220; 88112; 88305; 88307; 88309; 88312; 93005; 94060; 94640; 94660; 94729; 96361; 96374; 96375; 97110; 97162; 97165; 97530; 99285; A9270-GY; A9539; A9540; C1751; C8929; C9113; J0131; J0330; J0690; J1100; J1170; J1644; J1650; J1940; J2020; J2185; J2250; J2405; J2704; J2710; J2930; J3010; J3475; J3480; J3490; J7030; J7040; J7120; J7121; J7605; J7620; P9016; P9047; Q9967; U0002

== ENCOUNTER 2022-07-08 17:12 | Emergency (ER) | payer MEDICARE, BC ==
[2022-07-08] MEDS ORDERED: Ketorolac 15 MG/ML SDV IM ONE (18:28)
[2022-07-08] MEDS ORDERED: Methocarbamol 500 MG Tab PO ONE (18:28)
[2022-07-08 19:06] LABS: ESTIMATED GFR 54 mL/min (>60)
== END 2022-07-08 21:03 | disposition home or self-care (01) ==
LOC: JP.ED 17:12
DX: S39.012A Strain of muscle, fascia and tendon of lower back, initial encounter (principal); J45.909 Unspecified asthma, uncomplicated; I25.2 Old myocardial infarction; Z88.1 Allergy status to other antibiotic agents; Z88.5 Allergy status to narcotic agent
CPT/HCPCS: 36415; 72100; 80053; 81001; 85025; 96372; 99283; A9270; J1885

== ENCOUNTER 2022-09-12 07:25 | Day surgery (SDC) | payer MEDICARE, BC ==
[~2022-09-12 07:25] MED LIST: Bupivacaine 0.5% 50 ML MDV ONE; Dexamethasone 4 MG/ML SDV ONE; Glycopyrrolate 0.2 MG/ML 5 ML MDV ONE; Lidocaine 1% with EPINEPHrine 1:100,000 50 ML MDV ONE; Meropenem 500 MG SDV ONE; Neostigmine Methylsulfate 1 MG/ML 5 ML Syringe ONE; Ondansetron 4 MG/2 ML SDV ONE; Propofol 200 MG/20 ML SDV ONE; Rocuronium 50 MG/5 ML Vial ONE; Succinylcholine 200 MG/10 ML MDV ONE; fentaNYL 250 MCG/5 ML SDV ONE
[2022-09-12 07:53] LABS: BASOPHILS ABSOLUTE AUTO 0.06 K/uL (0.00-0.10); BASOPHILS PERCENT AUTO 0.7 % (0.1-1.3); EOSINOPHILS ABSOLUTE AUTO 0.34 K/uL (0.00-0.40); EOSINOPHILS PERCENT AUTO 3.9 % (0.0-5.4); HEMOGLOBIN 11.3 g/dL (12.9-16.9); IMMATURE GRAN ABSOLUTE AUTO 0.06 K/uL (0.00-0.23); IMMATURE GRAN PERCENT AUTO 0.7 % (0.0-0.7); LYMPHOCYTES ABSOLUTE AUTO 1.42 K/uL (0.8-3.3); LYMPHOCYTES PERCENT AUTO 16.5 % (11.4-47.7); MEAN CORPUSCULAR HEMOGLOBIN 28.8 pg (31.6-35.5); MEAN CORPUSCULAR HGB CONC 32.3 g/dL (31.6-35.5); MEAN CORPUSCULAR VOLUME 89.3 fL (81.4-99.0); MONOCYTES ABSOLUTE AUTO 0.66 K/uL (0.20-0.90); MONOCYTES PERCENT AUTO 7.7 % (3.3-12.6); NEUTROPHILS ABSOLUTE AUTO 6.08 K/uL (1.0-7.6); NEUTROPHILS PERCENT AUTO 70.5 % (40.0-78.1); PLATELET COUNT,PLT 289 K/uL (130-375); RED BLOOD CELL COUNT 3.92 M/uL (4.14-5.76); WHITE BLOOD CELL COUNT,WBC 8.6 K/uL (3.2-11.0)
[2022-09-12 08:19] LABS: A/G RATIO 0.9 (1.2-2.2); ALANINE AMINOTRANSFERASE,ALT 17 U/L (12-78); ALBUMIN 3.7 g/dL (3.4-5.0); ALKALINE PHOSPHATASE 56 U/L (46-116); ANION GAP 8.7 mmol/L (5.0-14.0); ASPARTATE AMNIOTRANSFERASE,AST 16 U/L (15-37); BILIRUBIN TOTAL 0.4 mg/dL (0.2-1.0); BLOOD UREA NITROGEN,BUN 25 mg/dL (7-18); CALCIUM 9.4 mg/dL (8.5-10.1); CARBON DIOXIDE,CO2 31 mmol/L (21-32); CHLORIDE,CL 101 mmol/L (100-108); ESTIMATED GFR 74 mL/min (>60); GLUCOSE RANDOM 106 mg/dL (74-106); PHOSPHORUS 3.5 mg/dL (2.5-4.9); PROTEIN TOTAL,TP 7.8 g/dL (6.4-8.2); SODIUM,NA 141 mmol/L (140-148)
[2022-09-12] MEDS ORDERED: Albuterol/Ipratropium 3.0-0.5 MG/3 ML Neb Soln NEB ONE (08:30)
[2022-09-12] MEDS: Dextrose 5%-Lactated Ringers 1,000 ML IV SCH ×2 (08:46→21:41)
[2022-09-12] MEDS ORDERED: ceFAZolin 2 GM in Premix Bag 1 BAG IV ONE (09:00)
[2022-09-12] MEDS ORDERED: Acetaminophen 325 MG Tab PO PRN (11:34)
[2022-09-12] MEDS ORDERED: traMADol 50 MG Tab PO PRN (11:34)
[2022-09-12] MEDS ORDERED: Ondansetron 4 MG/2 ML SDV IVPUSH PRN (11:34)
[2022-09-12] MEDS ORDERED: Albuterol/Ipratropium 3.0-0.5 MG/3 ML Neb Soln INH PRN (12:00)
[2022-09-12] MEDS: Albuterol/Ipratropium 3.0-0.5 MG/3 ML Neb Soln INH SCH ×2 (14:55→20:55)
[2022-09-12] MEDS: ceFAZolin 1 GM in Premix Bag 1 BAG IV SCH (15:14)
[2022-09-12] MEDS: guaiFENesin/Dextromethorphan 100-10 MG/5 ML Soln 10 ML Cup PO SCH ×2 (15:14→20:56)
[2022-09-12] MEDS: guaiFENesin 600 MG Tab.ER PO SCH ×2 (15:14→20:56)
[2022-09-12] MEDS ORDERED: CHLORPHENIRAMINE MALEATE 4 MG PO PRN (18:40)
[2022-09-12] MEDS ORDERED: SIMETHICONE 125 MG PO PRN (18:40)
[2022-09-12] MEDS: Acetylcysteine 20% 200 MG/ML 4 ML Nebulizer Soln SDV INH SCH (20:54)
[2022-09-12] MEDS: Arformoterol 15 MCG/2 ML Neb Soln INH SCH (20:55)
[2022-09-12] MEDS: Budesonide 0.5 MG/2 ML Neb Susp INH SCH (21:00)
[2022-09-13] MEDS: ceFAZolin 1 GM in Premix Bag 1 BAG IV SCH ×2 (00:11→10:01)
[2022-09-13] MEDS ORDERED: Aluminum Hydroxide/Magnesium Hydroxide/Simethicone Susp 30 ML Cup PO PRN (00:41)
[2022-09-13] MEDS ORDERED: Tiotropium Bromide 4 GM Inhalation Spray (2.5mcg/1 dose; 10 doses) INH SCH (07:00)
[2022-09-13] MEDS: Budesonide 0.5 MG/2 ML Neb Susp INH SCH (07:01)
[2022-09-13] MEDS: Acetylcysteine 20% 200 MG/ML 4 ML Nebulizer Soln SDV INH SCH (07:01)
[2022-09-13] MEDS: Albuterol/Ipratropium 3.0-0.5 MG/3 ML Neb Soln INH SCH ×2 (07:01→11:04)
[2022-09-13] MEDS: Arformoterol 15 MCG/2 ML Neb Soln INH SCH (07:01)
[2022-09-13] MEDS ORDERED: Aspirin 325 MG Tab.EC PO SCH (09:00)
[2022-09-13] MEDS ORDERED: Fluticasone NASAL Spray 16 GM Bottle NASBOTH SCH (09:00)
[2022-09-13] MEDS ORDERED: Isosorbide Mononitrate 30 MG Tab.ER PO SCH (09:00)
[2022-09-13] MEDS: guaiFENesin 600 MG Tab.ER PO SCH (10:03)
[2022-09-13] MEDS: guaiFENesin/Dextromethorphan 100-10 MG/5 ML Soln 10 ML Cup PO SCH (10:04)
== END 2022-09-13 12:10 | disposition home or self-care (01) ==
LOC: JP.SDS 07:25 → JP.MS 10:30 → JP.SDS 09-13 12:10
PROVIDERS: ATTEND Surgery
DX: N62 Hypertrophy of breast (principal); J44.9 Chronic obstructive pulmonary disease, unspecified; I25.10 Atherosclerotic heart disease of native coronary artery without angina pectoris; E78.00 Pure hypercholesterolemia, unspecified; Z79.899 Other long term (current) drug therapy; Z79.82 Long term (current) use of aspirin; Z99.81 Dependence on supplemental oxygen; Z95.1 Presence of aortocoronary bypass graft; Z88.1 Allergy status to other antibiotic agents
CPT/HCPCS: 19300; 36415; 80053; 83735; 84100; 85025; 94640; A9270; J0330; J0690; J1100; J2185; J2405; J2704; J2710; J3010; J3490; J7121; 88305; J2020; J7605; J7620

== ENCOUNTER 2023-04-06 20:46 | Inpatient (IN) | payer MEDICARE, BC ==
[2023-04-06] MEDS ORDERED: Albuterol/Ipratropium 3.0-0.5 MG/3 ML Neb Soln NEB ONE (21:07)
[2023-04-06 21:17] LABS: BASOPHILS ABSOLUTE AUTO 0.04 K/uL (0.00-0.10); BASOPHILS PERCENT AUTO 0.4 % (0.1-1.3); EOSINOPHILS ABSOLUTE AUTO 0.21 K/uL (0.00-0.40); EOSINOPHILS PERCENT AUTO 2.3 % (0.0-5.4); HEMATOCRIT 38.2 % (38.4-49.7); HEMOGLOBIN 12.7 g/dL (12.9-16.9); IMMATURE GRAN ABSOLUTE AUTO 0.05 K/uL (0.00-0.23); IMMATURE GRAN PERCENT AUTO 0.6 % (0.0-0.7); LYMPHOCYTES ABSOLUTE AUTO 1.37 K/uL (0.8-3.3); LYMPHOCYTES PERCENT AUTO 15.2 % (11.4-47.7); MEAN CORPUSCULAR HEMOGLOBIN 30.8 pg (31.6-35.5); MEAN CORPUSCULAR HGB CONC 33.2 g/dL (31.6-35.5); MEAN CORPUSCULAR VOLUME 92.5 fL (81.4-99.0); MONOCYTES ABSOLUTE AUTO 0.83 K/uL (0.20-0.90); MONOCYTES PERCENT AUTO 9.2 % (3.3-12.6); NEUTROPHILS ABSOLUTE AUTO 6.51 K/uL (1.0-7.6); NEUTROPHILS PERCENT AUTO 72.3 % (40.0-78.1); PLATELET COUNT,PLT 268 K/uL (130-375); RED BLOOD CELL COUNT 4.13 M/uL (4.14-5.76)
[2023-04-06 21:35] LABS: C-REACTIVE PROTEIN 4.49 mg/dL (<0.50); CALCIUM 9.6 mg/dL (8.5-10.1); CREATININE 1.1 mg/dL (0.8-1.3); EST CRCL DRUG DOSING (CG) 36.85 mL/min; POTASSIUM,K 4.1 mmol/L (3.6-5.2)
[2023-04-06 21:50] LABS: CORONAVIRUS COVID-19 NAA NEGATIVE (NEGATIVE); INFLUENZA A NAA NEGATIVE (NEGATIVE); INFLUENZA B NAA NEGATIVE (NEGATIVE); RESPIRATORY SYNCYTIAL VIR NAA NEGATIVE (NEGATIVE)
[2023-04-06] MEDS ORDERED: Sodium Chloride 0.9% 10 ML Syringe FLUSH PRN (21:57)
[2023-04-06] MEDS ORDERED: cefTRIAXone 1 GM in Sodium Chloride 0.9% 50 ML IV SCH (22:00)
[2023-04-06] MEDS ORDERED: Albuterol/Ipratropium 3.0-0.5 MG/3 ML Neb Soln NEB PRN (22:04)
[2023-04-06 22:16] LABS: LACTIC ACID 1.4 mmol/L (0.4-2.0)
[2023-04-07] MEDS ORDERED: Polyethylene Glycol 3350 Powder 17 GM Packet PO PRN (00:27)
[2023-04-07] MEDS ORDERED: guaiFENesin 600 MG Tab.ER PO PRN (00:27)
[2023-04-07] MEDS ORDERED: guaiFENesin/Dextromethorphan 100-10 MG/5 ML Soln 10 ML Cup PO PRN (00:27)
[2023-04-07] MEDS ORDERED: Ondansetron 4 MG/2 ML SDV IV PRN (00:27)
[2023-04-07] MEDS ORDERED: Albuterol 0.083% 2.5 MG/3 ML Neb Soln NEB PRN (00:27)
[2023-04-07] MEDS ORDERED: Acetaminophen 325 MG Tab PO PRN (00:27)
[2023-04-07] MEDS ORDERED: Sodium Chloride 0.9% 10 ML Syringe FLUSH PRN (00:27)
[2023-04-07] MEDS ORDERED: Doxycycline 100 MG in Sodium Chloride 0.9% 100 ML IV ONE (00:45)
[2023-04-07] MEDS: Enoxaparin 40 MG/0.4 ML Syringe SUBCUT SCH ×2 (00:56→20:25)
[2023-04-07] MEDS: methylPREDNISolone Sodium Succinate 40 MG/1 ML SDV IVPUSH SCH ×3 (00:56→16:08)
[2023-04-07 05:14] LABS: BASOPHILS ABSOLUTE AUTO 0.03 K/uL (0.00-0.10); BASOPHILS PERCENT AUTO 0.3 % (0.1-1.3); EOSINOPHILS ABSOLUTE AUTO 0.04 K/uL (0.00-0.40); EOSINOPHILS PERCENT AUTO 0.4 % (0.0-5.4); HEMATOCRIT 37.8 % (38.4-49.7); HEMOGLOBIN 12.4 g/dL (12.9-16.9); IMMATURE GRAN ABSOLUTE AUTO 0.04 K/uL (0.00-0.23); IMMATURE GRAN PERCENT AUTO 0.4 % (0.0-0.7); LYMPHOCYTES PERCENT AUTO 6.5 % (11.4-47.7); MEAN CORPUSCULAR HGB CONC 32.8 g/dL (31.6-35.5); MEAN CORPUSCULAR VOLUME 91.5 fL (81.4-99.0); MONOCYTES ABSOLUTE AUTO 0.16 K/uL (0.20-0.90); MONOCYTES PERCENT AUTO 1.7 % (3.3-12.6); NEUTROPHILS ABSOLUTE AUTO 8.37 K/uL (1.0-7.6); NEUTROPHILS PERCENT AUTO 90.7 % (40.0-78.1); PLATELET COUNT,PLT 296 K/uL (130-375); RED BLOOD CELL COUNT 4.13 M/uL (4.14-5.76); WHITE BLOOD CELL COUNT,WBC 9.2 K/uL (3.2-11.0)
[2023-04-07 05:36] LABS: ANION GAP 8.2 mmol/L (5.0-14.0); CALCIUM 9.4 mg/dL (8.5-10.1); EST CRCL DRUG DOSING (CG) 38.96 mL/min; MAGNESIUM 1.9 mg/dL (1.8-2.4); POTASSIUM,K 4.6 mmol/L (3.6-5.2)
[2023-04-07] MEDS ORDERED: Ipratropium 0.06% Nasal Spray 15 ML Bottle NAS SCH (06:00)
[2023-04-07] MEDS ORDERED: Albuterol/Ipratropium 3.0-0.5 MG/3 ML Neb Soln NEB SCH (06:00)
[2023-04-07] MEDS: Albuterol/Ipratropium 3.0-0.5 MG/3 ML Neb Soln NEB SCH ×4 (07:00→20:36)
[2023-04-07] MEDS: Acetylcysteine 20% 200 MG/ML 4 ML Nebulizer Soln SDV NEB SCH ×2 (07:01→20:34)
[2023-04-07] MEDS: Arformoterol 15 MCG/2 ML Neb Soln INH SCH ×3 (07:01→20:25)
[2023-04-07] MEDS: Tiotropium Bromide 4 GM Inhalation Spray (2.5mcg/1 dose; 10 doses) INH SCH ×2 (07:01→08:47)
[2023-04-07] MEDS: Budesonide 0.5 MG/2 ML Neb Susp INH SCH ×2 (07:01→20:35)
[2023-04-07] MEDS: Ipratropium 0.06% Nasal Spray 15 ML Bottle NAS SCH ×4 (08:44→20:24)
[2023-04-07] MEDS: Aspirin 325 MG Tab.EC PO SCH (08:45)
[2023-04-07] MEDS: Fluticasone NASAL Spray 16 GM Bottle NAS SCH (08:45)
[2023-04-07] MEDS: Isosorbide Mononitrate 30 MG Tab.ER PO SCH (08:46)
[2023-04-07] MEDS ORDERED: Non-Formulary Medication 1 Each (Formoterol [Perforomist] 20 MCG/2 ML Neb) NEB SCH (09:00)
[2023-04-07] MEDS ORDERED: Doxycycline 100 MG in Sodium Chloride 0.9% 100 ML IV SCH (10:00)
[2023-04-07] MEDS: Doxycycline 100 MG Cap PO SCH (20:26)
[2023-04-07] MEDS ORDERED: cefTRIAXone 1 GM in Sodium Chloride 0.9% 50 ML IV SCH (21:00)
[2023-04-08] MEDS: methylPREDNISolone Sodium Succinate 40 MG/1 ML SDV IVPUSH SCH (00:50)
[2023-04-08] MEDS: Albuterol/Ipratropium 3.0-0.5 MG/3 ML Neb Soln NEB SCH ×4 (07:18→20:26)
[2023-04-08] MEDS: Acetylcysteine 20% 200 MG/ML 4 ML Nebulizer Soln SDV NEB SCH ×2 (07:18→20:26)
[2023-04-08] MEDS: Arformoterol 15 MCG/2 ML Neb Soln INH SCH ×2 (07:27→20:26)
[2023-04-08] MEDS: Budesonide 0.5 MG/2 ML Neb Susp INH SCH ×2 (07:27→20:27)
[2023-04-08] MEDS: Tiotropium Bromide 4 GM Inhalation Spray (2.5mcg/1 dose; 10 doses) INH SCH (07:41)
[2023-04-08] MEDS: predniSONE 20 MG Tab PO SCH (08:13)
[2023-04-08] MEDS: Doxycycline 100 MG Cap PO SCH ×2 (08:13→20:27)
[2023-04-08] MEDS: Ipratropium 0.06% Nasal Spray 15 ML Bottle NAS SCH ×4 (08:14→20:25)
[2023-04-08] MEDS: Fluticasone NASAL Spray 16 GM Bottle NAS SCH (08:14)
[2023-04-08] MEDS: Isosorbide Mononitrate 30 MG Tab.ER PO SCH (08:15)
[2023-04-08] MEDS: Aspirin 325 MG Tab.EC PO SCH (08:15)
[2023-04-08] MEDS: Cefdinir 300 MG Cap PO SCH (20:27)
[2023-04-08] MEDS: Enoxaparin 40 MG/0.4 ML Syringe SUBCUT SCH (20:30)
[2023-04-09] MEDS: Budesonide 0.5 MG/2 ML Neb Susp INH SCH (07:16)
[2023-04-09] MEDS: Albuterol/Ipratropium 3.0-0.5 MG/3 ML Neb Soln NEB SCH ×2 (07:16→10:59)
[2023-04-09] MEDS: Acetylcysteine 20% 200 MG/ML 4 ML Nebulizer Soln SDV NEB SCH (07:16)
[2023-04-09] MEDS: Arformoterol 15 MCG/2 ML Neb Soln INH SCH (07:24)
[2023-04-09] MEDS: Tiotropium Bromide 4 GM Inhalation Spray (2.5mcg/1 dose; 10 doses) INH SCH (07:24)
[2023-04-09] MEDS: predniSONE 20 MG Tab PO SCH (08:10)
[2023-04-09] MEDS: Cefdinir 300 MG Cap PO SCH (08:10)
[2023-04-09] MEDS: Fluticasone NASAL Spray 16 GM Bottle NAS SCH (08:10)
[2023-04-09] MEDS: Ipratropium 0.06% Nasal Spray 15 ML Bottle NAS SCH ×2 (08:11→12:27)
[2023-04-09] MEDS: Aspirin 325 MG Tab.EC PO SCH (08:11)
[2023-04-09] MEDS: Doxycycline 100 MG Cap PO SCH (08:11)
[2023-04-09] MEDS: Isosorbide Mononitrate 30 MG Tab.ER PO SCH (08:12)
== END 2023-04-09 13:04 | disposition home or self-care (01) | DRG 189 ==
LOC: JP.ED 20:46 → JP.MS 22:00
PROVIDERS: ADMIT Hospitalist; ATTEND Internal Medicine
DX: J96.21 Acute and chronic respiratory failure with hypoxia (principal); J44.1 Chronic obstructive pulmonary disease with (acute) exacerbation; J44.0 Chronic obstructive pulmonary disease with (acute) lower respiratory infection; J45.909 Unspecified asthma, uncomplicated; J20.9 Acute bronchitis, unspecified; I48.91 Unspecified atrial fibrillation; I25.10 Atherosclerotic heart disease of native coronary artery without angina pectoris; E78.00 Pure hypercholesterolemia, unspecified; Z11.52 Encounter for screening for COVID-19; Z20.822 Contact with and (suspected) exposure to COVID-19; Z88.5 Allergy status to narcotic agent; Z88.1 Allergy status to other antibiotic agents; Z88.8 Allergy status to other drugs, medicaments and biological substances; Z79.82 Long term (current) use of aspirin; Z79.899 Other long term (current) drug therapy; Z95.1 Presence of aortocoronary bypass graft; I25.2 Old myocardial infarction; Z86.010 Personal history of colon polyps; Z87.81 Personal history of (healed) traumatic fracture; Z87.891 Personal history of nicotine dependence; Z98.890 Other specified postprocedural states
CPT/HCPCS: 0241U; 36415; 71046; 80048; 83605; 83735; 85025; 86140; 87040; 94640; 97161; 99285; A9270-GY; J0696; J1650; J2920; J3490; J7512; J7605; J7620